=== PATIENT | female | born 1995 | race Hispanic/Latino ===

== ENCOUNTER 2019-05-31 00:14 | Emergency (ER) | payer OTHER, SELFPAY ==
--- OUTSIDE RECORDS SUMMARY | 2019-05-31 00:17 | XMS REPORT ---
:1995 [facility] Address [address] [place] [address] Dr. Iniguez [address] [place] [id number] Care Team Providers Name Role Phone Unavailable Unavailable Unavailable Problems This patient has no known problems. Allergies, Adverse Reactions, Alerts This patient has no known allergies or adverse reactions. Medications This patient has no known medications.
[2019-05-31 01:05] LABS: Absolute Lymphocytes (CBC) 1.5 K/uL (0.7-4.9); Basophils % 0.3 % (0-1.3); Hematocrit 38.8 % (36.0-45.0); Lymphocytes % 10.2 % (15.3-44.8); MPV 7.6 fL (7.6-11.3)
[2019-05-31] MEDS ORDERED: MORPHINE 4 MG/ML SYR ONE (01:06)
[2019-05-31] MEDS ORDERED: ONDANSETRON 4 MG/2 ML VIAL ONE (01:06)
[2019-05-31 01:37] LABS: Urine Blood 2+ (NEG); Urine Glucose NEGATIVE (NEG); Urine Protein 1+ (NEG); Urine Specific Gravity >1.030 (1.005-1.030); Urine pH 5.5 (5.0-7.0)
[2019-05-31 01:38] LABS: ALT/SGPT 14 U/L (12-78); AST/SGOT 12 U/L (15-37); Albumin 3.8 g/dL (3.4-5.0); Alkaline Phosphatase 98 U/L (45-117); BUN Blood Urea Nitrogen 12 mg/dL (7-18); Bicarbonate 25 mmol/L (21-32); Bilirubin Direct 0.1 mg/dL (0-0.2); Bilirubin Total 0.4 mg/dL (0.2-1.0); Glucose Level 100 mg/dL (74-106); Lipase 144 U/L (73-393); Potassium 3.6 mmol/L (3.5-5.1); Protein, Total 7.8 g/dL (6.4-8.2); Sodium Level 139 mmol/L (136-145)
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
[2019-05-31 03:30] VITALS: BP 125/70; TEMP 97.5; O2SAT 99
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
== END 2019-05-31 03:16 | disposition home or self-care (01) ==
LOC: ER 00:14
DX: S30.1XXA Contusion of abdominal wall, initial encounter (principal); V89.2XXA Person injured in unspecified motor-vehicle accident, traffic, initial encounter
CPT/HCPCS: 85025; 80048; 36415; 81025; 80076; 81003; 83690; 74177; 96375; 96374; 99284; Q9967; J2405

== ENCOUNTER 2021-11-16 10:56 | Observation (INO) | payer BC, OTHER, SELFPAY ==
--- OUTSIDE RECORDS SUMMARY | 2021-11-16 10:59 | XMS REPORT | Continuity of Care Document ---
:[address] [facility] t Address [address] [place] [address] Dr. [address] [place] [address] Care Team Providers Name Role Phone Radiology Attending Clinician Unavailable RADIOLOGY Attending Clinician Unavailable Kalin Galvez Attending Clinician KALIN MAHONEY Attending Clinician Unavailable Doctor Unassigned, [place] Attending Clinician Unavailable Payers Payer Name Policy Type Policy Number Effective Date Expiration Date [facility] [id number] 2017 2020 CHOICE MEDICAID 00:00:00 00:00:00 Problems Condition Condition Condition Status Onset Resolution Last Treating Co mments Source Name Details Category Date Date Treatment Clinician Date Obesity Obesity Disease Active Univers (BMI (BMI 7-31 ity of 30-39.9) 30-39.9) 00:00: [address] Normal Normal Disease Active Univers labor labor 7-30 ity of 00:00: [address] Branch History of History of Disease Active U ning depression depression 5-30 it y of 00:00: [place] [facility] Branch History of History of Disease Active U nivers anxiety anxiety 5-30 ity of 00:00: [address] Branch Round Round Disease Active Univers ligament ligament 5-30 ity of pain pain 00:00: [address] Branch High-risk High-risk Disease Active Uni vers 5-30 ity of in third in third 00:00: [place] trimester trimester 00 [facility] Branch Allergies, Adverse Reactions, Alerts Allergy Allergy Status Severity Reaction(s) Onset Inactive Treating Comm ents Source Name Type Date Date Clinician Clindamy Propensi Active Swelling Univ ers alo-Angelo ty to 7-10 ity of oyl adverse 00:00: [place] Peroxide reaction 00 Medica l s Branch CLINDAMY DRUG Active Swelling 2013-0 Univer s ALO-ANGELO 7-10 ity of OYL 00:00: [place] PEROXIDE 00 Medical Branch Social History Social Habit Start Date Stop Date Quantity Comments Source Exposure to Not sure [facility] SARS-CoV-2 [place] [facility] (event) Branch Tobacco use and 2017-11-25 2017-11-25 Never used Universit y of exposure 00:00:00 00:00:00 [facility] Branch Alcohol intake 2017-11-25 2017-11-25 Current University 00:00:00 00:00:00 non-drinker of [facility] alcohol Branch (finding) Sex [birth year] Universit y of 00:00:00 00:00:[address] [facility] Smoking Status Start Date Stop Date Source Never smoker [facility] Medical Branch Medications Ordered Filled Start Stop Current Ordering Indication Dosage Frequency Signature Comments Components Source Medication Medication Date Date Medication? Clinician (SIG) Name Name cholecalcif Yes 1000U Take 1,000 Univers rohith, 9-10 Units by ity of vitamin D3, 20:27: mouth [place] (VITAMIN 11 daily. Medical D3) 1,000 Branch unit tablet cholecalcif 0 Yes 1000U Take 1,000 Univers rohith, 9-10 Units by ity of vitamin D3, 20:27: mouth [place] (VITAMIN 11 daily. Medical D3) 1,000 Branch unit tablet cholecalcif 0 Yes 1000U Take 1,000 Univers rohith, 9-10 Units by ity of vitamin D3, 20:27: mouth [place] (VITAMIN 11 daily. Medical D3) 1,000 Branch unit tablet cholecalcif 0 Yes 1000U Take 1,000 Univers rohith, 9-10 Units by ity of vitamin D3, 20:27: mouth [place] (VITAMIN 11 daily. Medical D3) 1,000 Branch unit tablet cholecalcif 2017-0 Yes 1000U Take 1,000 Univers rohith, 9-10 Units by ity of vitamin D3, 20:27: mouth [place] (VITAMIN 11 daily. Medical D3) 1,000 Branch unit tablet CALCIUM Yes Take by Univers CARBONATE 8-02 mouth. ity of (TUMS 500 18:08: [place] ORAL) 15 Medical Branch CALCIUM Yes Take by Univers CARBONATE 8-02 mouth. ity of (TUMS 500 18:08: [place] ORAL) 15 Medical Branch CALCIUM Yes Take by Univers CARBONATE 8-02 mouth. ity of (TUMS 500 18:08: [place] ORAL) 15 Medical Branch CALCIUM Yes Take by Univers CARBONATE 8-02 mouth. ity of (TUMS 500 18:08: [place] ORAL) 15 Medical Branch CALCIUM Yes Take by Univers CARBONATE 8-02 mouth. ity of (TUMS 500 18:08: [place] ORAL) 15 Medical Branch Yes 1{tbl} Take 1 Unive rs vitamin 8-02 tablet by ity of w/FA tablet 00:00: mouth [place] 00 daily. Medical Branch ferrous Yes 325mg Take 1 Univers sulfate 325 8-02 tablet by ity of mg (65 mg 00:00: mouth [place] iron) 00 daily. Medical tablet Branch Yes 1{tbl} Take 1 Unive rs vitamin 8-02 tablet by ity of w/FA tablet 00:00: mouth [place] 00 daily. Medical Branch ferrous Yes 325mg Take 1 Univers sulfate 325 8-02 tablet by ity of mg (65 mg 00:00: mouth [place] iron) 00 daily. Medical tablet Branch Yes 1{tbl} Take 1 Unive rs vitamin 8-02 tablet by ity of w/FA tablet 00:00: mouth [place] 00 daily. Medical Branch ferrous Yes 325mg Take 1 Univers sulfate 325 8-02 tablet by ity of mg (65 mg 00:00: mouth [place] iron) 00 daily. Medical tablet Branch Yes 1{tbl} Take 1 Unive rs vitamin 8-02 tablet by ity of w/FA tablet 00:00: mouth [place] 00 daily. Medical Branch ferrous Yes 325mg Take 1 Univers sulfate 325 8-02 tablet by ity of mg (65 mg 00:00: mouth [place] iron) 00 daily. Medical tablet Branch Yes 1{tbl} Take 1 Unive rs vitamin 8-02 tablet by ity of w/FA tablet 00:00: mouth [place] 00 daily. Medical Branch ferrous Yes 325mg Take 1 Univers sulfate 325 8-02 tablet by ity of mg (65 mg 00:00: mouth [place] iron) 00 daily. Medical tablet Branch Adapalene Yes Apply to Univ ers (DIFFERIN) 7-10 affected ity o f 0.3 % Gel 00:00: area(s) [place] 00 every Medical evening. Branch Adapalene Yes Apply to [facility] ers (DIFFERIN) 7-10 affected ity o f 0.3 % Gel 00:00: area(s) [place] 00 every Medical evening. Branch Adapalene 2012- Yes Apply to [facility] ers (DIFFERIN) 7-10 affected ity o f 0.3 % Gel 00:00: area(s) [place] 00 every Medical evening. Branch Adapalene 2012- Yes Apply to [facility] ers (DIFFERIN) 7-10 affected ity o f 0.3 % Gel 00:00: area(s) [place] 00 every Medical evening. Branch Adapalene Yes Apply to [facility] ers (DIFFERIN) 7-10 affected ity o f 0.3 % Gel 00:00: area(s) [place] 00 every Medical evening. Branch Immunizations Ordered Filled Immunization Date Status Comments [facility] e Immunization Name Name [facility] 2017-08-14 Completed [facility] 00:00:00 [place] [facility] 2017-08-14 Completed [facility] 00:00:00 [place] [facility] 2017-08-14 Completed [facility] 00:00:00 [place] [facility] 2017-08-14 Completed [facility] 00:00:00 [place] [facility] 2017-08-14 Completed [facility] 00:00:[address] [facility] Procedures Procedure Date / Time Performing Clinician Source Performed XR RIBS 3 VW RIGHT 2020-08-05 17:40:58 Sharona Kang [facility] US ABDOMEN LIMITED 2020-07-26 22:22:14 Kalin Mahoney [facility] CONSENT/REFUSAL FOR 2020-07-26 22:02:21 [facility] ASSIGNMENT OF BENEFITS 2020-07-26 22:02:09 Doctor Unassigned, No [facility] US PELVIS COMPLETE WITH 2020-03-31 21:57:34 Requisition, Paper U [facility] TRANSVAGINAL [facility] ASSIGNMENT OF BENEFITS 2020-03-31 20:53:38 Doctor Unassigned, No [facility] Encounters Start End Encounter Admission Attending Care Care Encounter Source Date/Time Date/Time Type Type Clinicians Facility Department ID 2020-08-05 2020-08-05 [facility] Radiology RUST [id number] Univers 12:27:03 23:59:00 Encounter [place] [id number] ity of [place] [id number] [place] [id number] [facility] 807 Branch 2020-08-05 2020-08-05 Outpatient R RADIOLOGY [facility] [id number] Univers 12:30:00 12:30:[id number] [facility] 2020-08-05 2020-08-05 Outpatient R RADIOLOGY [facility] [id number] Univers 00:00:00 00:00:[address] [facility] 2020-07-26 2020-07-26 [facility] [id number] Univers 17:00:00 23:59:00 Encounter Kalin L Ean [id number] ity of [place] [id number] [facility] [id number] [facility] 806 [place] 2020-07-26 2020-07-26 [facility] [id number] Univers 17:00:00 17:00:[id number] [facility] 2020-07-26 2020-07-26 [facility] [id number] Univers 00:00:00 00:00:[address] [facility] 2020-07-26 2020-07-26 Orders Doctor LEESA [id number] Univers 00:00:00 00:00:00 Only Unassigned, MITCH [id number] ity of [place] [facility] [id number] [place] [id number] [facility] 009 Branch 2020-03-31 2020-03-31 [facility] Radiology RUST [id number] Univers 14:55:24 23:59:00 Encounter Dub[place] [id number] ity of [place] [id number] [facility] [id number] [facility] 806 Branch 2020-03-31 2020-03-31 Outpatient R RADIOLOGY [facility] [id number] Univers 15:30:00 15:30:[id number] [facility] 2020-03-31 2020-03-31 Outpatient R RADIOLOGY [facility] [id number] Univers 00:00:00 00:00:[address] [facility] 2020-03-31 2020-03-31 Orders Doctor LEESA [id number] Univers 00:00:00 00:00:00 Only Unassigned, MITCH [id number] ity of [place] [facility] [id number] [facility] [id number] [facility] 009 Branch Results Test Description Test Time Test Comments Results Result [facility] e Comments XR RIBS 3 VW 2020-07-17 No rib fracture, Unive rsity of RIGHT 1 rib lesion, or [facility] 19:43:02 pleural effusion Branch evident. RL: [id number] Patient name: KINSEY CHOWDARYMarques: 1995 25 years EXAMINATION: XR RIBS 3 VW RIGHT Ordering Physician: SHARONA KANG CLINICAL HISTORY:Pleuritic chest pain COMPARISON:None TECHNIQUE:Single frontal view the chest and multiple views of the left ribsperformed. FINDINGS:No discrete rib fracture. No rib lesions identified. No effusion orpneumothorax. No definite spine fracture. No pulmonary infiltrates. Heartsize is normal without edema. Normal aortic contours. [facility], Radiant Results Inft User - 08/05/2020 2:44 PM CDTPatient name: KINSEY JEFFERSON: 1995 25 years EXAMINATION: XR RIBS 3 VW RIGHTOrdering Physician: SHARONA KANG CLINICAL HISTORY:Pleuritic chest pain COMPARISON:NoneTECHN IQUE:Single frontal view the chest and multiple views of the left ribsperformed.FINDIN GS:No discrete rib fracture. No rib lesions identified. No effusion orpneumothorax. No definite spine fracture. No pulmonary infiltrates. Heartsize is normal without edema. Normal aortic contours.IMPRESSIONN o rib fracture, rib lesion, or pleural effusion evident.RL: 1105 ABDOMEN 2020-07-16 Impression: ? There Unive rsity of LIMITED 1 is no evidence of a [place] [facility] 23:08:30 focal subcutaneous Branch mass or cyst in the softtissues of the abdominal wall and the right upper quadrant. If there ispersistent clinical concern, an abdomen and pelvis CT with contrast isrecommended. RL: [id number] Clinical indication: Mass felt in the subcutaneous tissues in the rightupper quadrant. Ordering Physician: KALIN MAHONEY Exam: Limited abdominal ultrasound. Technique: ?Realtime transabdominal ultrasonographic images were obtained. There are no prior ultrasounds for comparison. ?All diagnostic images arestored in PACS for future documentation. Findings: ? There is no evidence of a focal subcutaneous mass or cyst in the softtissues of the abdominal wall and the right upper quadrant. If there ispersistent clinical concern, an abdomen and pelvis CT with contrast isrecommended. [facility], Radiant Results Inft User - 07/26/2020 6:09 PM CDTClinical indication: Mass felt in the subcutaneous tissues in the rightupper quadrant.Ordering Physician: KALIN MAHONEYExam: Limited abdominal ultrasound.Technique : Realtime transabdominal ultrasonographic images were obtained. There are no prior ultrasounds for comparison. All diagnostic images arestored in PACS for future documentation.Findin gs: There is no evidence of a focal subcutaneous mass or cyst in the softtissues of the abdominal wall and the right upper quadrant. If there ispersistent clinical concern, an abdomen and pelvis CT with contrast isrecommended.IMPRES SIONImpression: There is no evidence of a focal subcutaneous mass or cyst in the softtissues of the abdominal wall and the right upper quadrant. If there ispersistent clinical concern, an abdomen and pelvis CT with contrast isrecommended.RL: 4507 PELVIS 2020-03-18 HISTORY: PCOS [facility] WITH 4 syndrome. TECHNIQUE: T ex Medical TRANSVAGINAL 22:01:30 Both transabdominal [facility] and transvaginal pelvic ultrasound studieswere completed by the technologist. FINDINGS: Uterus is slightly enlarged, lying and retroflexed position inthe pelvis, measures approximately 8.5 x 3.7 x 4.6 cm in size withhomogeneous echo texture of the myometrium. IUD appears to be in goodposition within the uterus. Endometrial echo complex is 8.1 mm. No freefluid in the cul-de-sac. Right ovary is 2.6 x 2.3 x 2.0 cm (6.25 ml) and left ovary is 3.0 x 2.5 x1.6 cm (6.34 ml). 3 to 5 mm size follicles are seen in both ovaries,approximatel y 10 in the left ovary and 4-5 in the right ovary. CONCLUSIONS: 1. Bulky uterus without any focal myometrial lesions.2. IUD in good position in the uterus.3. Small follicles in both ovaries. Sonographic findings are not typicalfor PCOS. [facility], Radiant Results Inft User - 03/31/2020 4:02 PM CSTHISTORY: PCOS syndrome.TECHNIQUE: Both transabdominal and transvaginal pelvic ultrasound studieswere completed by the technologist.FINDING S: Uterus is slightly enlarged, lying and retroflexed position inthe pelvis, measures approximately 8.5 x 3.7 x 4.6 cm in size withhomogeneous echo texture of the myometrium. IUD appears to be in goodposition within the uterus. Endometrial echo complex is 8.1 mm. No freefluid in the cul-de-sac. Right ovary is 2.6 x 2.3 x 2.0 cm (6.25 ml) and left ovary is 3.0 x 2.5 x1.6 cm (6.34 ml). 3 to 5 mm size follicles are seen in both ovaries,approximatel y 10 in the left ovary and 4-5 in the right ovary.CONCLUSIONS: 1. Bulky uterus without any focal myometrial lesions.2. IUD in good position in the uterus.3. Small follicles in both ovaries. Sonographic findings are not typicalfor PCOS.
[2021-11-16] MEDS ORDERED: Ringers Lactate 1,000 ML IV ONE (11:21)
[2021-11-16 11:30] LABS: Absolute Lymphocytes (CBC) 1.8 K/uL (0.7-4.9); Hematocrit 38.2 % (36.0-45.0); Lymphocytes % 22.9 % (15.3-44.8); MCV 82.9 fL (80-100); MPV 7.1 fL (7.6-11.3); RBC Red Blood Cell Count 4.61 M/uL (3.86-4.86)
[2021-11-16 11:51] LABS: ALT/SGPT 18 U/L (12-78); AST/SGOT 12 U/L (15-37); Alkaline Phosphatase 90 U/L (45-117); BUN Blood Urea Nitrogen 13 mg/dL (7-18); Bicarbonate 28 mmol/L (21-32); Bilirubin Direct 0.1 mg/dL (0-0.2); Bilirubin Total 0.5 mg/dL (0.2-1.0); Glomerular Filtration Rate 93 ml/min (=/>90); Glucose Level 93 mg/dL (74-106); Magnesium 2.2 mg/dL (1.8-2.4); NT PRO-BNP 6 pg/mL (<125); Potassium 3.5 mmol/L (3.5-5.1); Sodium Level 138 mmol/L (136-145)
[2021-11-16 11:55] LABS: Urine Blood 1+ (Negative); Urine Glucose Negative (Negative); Urine Protein Negative (Negative); Urine Specific Gravity >=1.030 (1.005-1.030)
[2021-11-16 12:00] LABS: Troponin High Sensitivity < 3.0 pg/mL (<58.9)
--- NOTE | 2021-11-16 12:12 | RAD REPORT ---
EXAM DESCRIPTION: CT - CTHCSPWOC - 11/16/2021 12:03 pm CLINICAL HISTORY: syncope, head injury COMPARISON: No comparisons TECHNIQUE: Axial 5 mm thick images of the head were obtained. Axial 2 mm thick images of the cervic al spine were obtained with sagittal and coronal reconstruction images generated and reviewed. All CT scans are performed using dose optimization technique as appropriate and may include automated exposure control or mA/KV adjustment according to patient size. FINDINGS: No intracranial hemorrhage, mass, edema or acute intracranial finding. No suspicion for ac [place] infarction. No extra-axial fluid collections. Mastoid air cells and paranasal sinuses are clear. No globe or orbit abnormality seen. Cervical body height and alignment are normal. No disk space narrowing. No fracture or acute bony abn ormality. Central canal detail is inherently limited. No paraspinal mass or hematoma. IMPRESSION: Negative CT head examination for acute or significant finding. Negative CT cervical spine examination for acute or significant finding.
[2021-11-16 12:29] LABS: Protime INR 0.98
--- NOTE | 2021-11-16 12:36 | RAD REPORT ---
EXAM DESCRIPTION: RAD - Chest Single View - 11/16/2021 12:30 pm CLINICAL HISTORY: syncope Chest pain. COMPARISON: ABDOMEN 1 VIEW KUB dated 01/06/2013; CHEST PA AND LAT 2 VIEW dated 06/27/2012 FINDINGS: Portable technique limits examination quality. The lungs are grossly clear. The heart is normal in size. No displaced fractures. IMPRESSION: No acute intrathoracic process suspected.
--- NOTE | 2021-11-16 16:37 | ER ---
Nurse's Notes [facility] Name: Luisa Helm Age: 26 yrs Sex: Female : 1995 Arrival Date: 11/16/2021 Time: 10:56 Bed 4 Private MD: Amy Pond Diagnosis: Syncope;Palpitations Presentation: 11/16 11:07 Chief complaint: Patient states: Passed out while assisting in a procedure at work just ss prior to arrival. Pt reports that this occurred once before 2 weeks ago. Coronavirus screen: Client denies travel out of the [place] in the last 14 days. Ebola Screen: Patient denies exposure to infectious person. Patient denies travel to an Ebola-affected area in the 21 days before illness onset. Initial Sepsis Screen: Does the patient meet any 2 criteria? No. Patient's initial sepsis screen is negative. Does the patient have a suspected source of infection? No. Patient's initial sepsis screen is negative. Risk Assessment: Do you want to hurt yourself or someone else? Patient reports no desire to harm self or others. Onset of symptoms was November 16, 2021. 11:07 Method Of Arrival: Ambulatory ss 11:07 Acuity: LOPEZ 3 ss Historical: - Allergies: 11:13 BENZOYL PEROXIDE; ss - Home Meds: 11:13 None [Active]; ss - PMHx: 11:13 None; ss - PSHx: 11:13 section; Breast Reduction; ss - Immunization history:: Client reports receiving the 2nd dose of the Covid vaccine. - Social history:: Smoking status: Patient denies any tobacco usage or history of. Screenin:15 Abuse screen: Denies threats or abuse. Nutritional screening: No deficits noted. vg1 Tuberculosis screening: No symptoms or risk factors identified. Fall Risk No fall in past 12 months (0 pts). No secondary diagnosis (0 pts). IV access (20 points). Ambulatory Aid- None/Bed Rest/Nurse Assist (0 pts). Gait- Normal/Bed Rest/Wheelchair (0 pts) Mental Status- Oriented to own ability (0 pts). Total Navarro Fall Scale indicates No Risk (0-24 pts). Assessment: 11:15 General: Appears in no apparent distress. uncomfortable, Behavior is calm, cooperative. vg1 Pain: Denies pain. Neuro: Level of Consciousness is awake, alert, obeys commands, Oriented to person, place, time, situation, Reports dizziness. Cardiovascular: Patient's skin is warm and dry. Respiratory: Airway is patent Respiratory effort is even, unlabored. GI: Abdomen is flat, non-distended, Patient currently denies nausea, vomiting. : No signs and/or symptoms were reported regarding the genitourinary system. EENT: No signs and/or symptoms were reported regarding the EENT system. Derm: Skin is pink, warm \T\ dry. Musculoskeletal: Circulation, motion, and sensation intact. 12:30 Reassessment: Patient appears in no apparent distress at this time. Patient and/or vg1 family updated on plan of care and expected duration. Pain level reassessed. Patient is alert, oriented x 3, equal unlabored respirations, skin warm/dry/pink. Patient denies pain at this time. Patient states feeling better. 14:10 Reassessment: Patient appears in no apparent distress at this time. No changes from vg1 previously documented assessment. Patient and/or family updated on plan of care and expected duration. Pain level reassessed. Patient is alert, oriented x 3, equal unlabored respirations, skin warm/dry/pink. 15:15 Reassessment: Patient appears in no apparent distress at this time. No changes from vg1 previously documented assessment. Patient and/or family updated on plan of care and expected duration. Pain level reassessed. Patient is alert, oriented x 3, equal unlabored respirations, skin warm/dry/pink. 16:00 Reassessment: Patient appears in no apparent distress at this time. No changes from tp1 previously documented assessment. Patient is alert, oriented x 3, equal unlabored respirations, skin warm/dry/pink. 17:09 Reassessment: Patient appears in no apparent distress at this time. No changes from tp1 previously documented assessment. Patient and/or family updated on plan of care and expected duration. Pain level reassessed. Patient is alert, oriented x 3, equal unlabored respirations, skin warm/dry/pink. 19:50 Reassessment: Patient appears in no apparent distress at this time. Patient and/or jb4 family updated on plan of care and expected duration. Pain level reassessed. Patient is alert, oriented x 3, equal unlabored respirations, skin warm/dry/pink. 20:27 Reassessment: Patient appears in no apparent distress at this time. Patient and/or jb4 family updated on plan of care and expected duration. Pain level reassessed. Patient is alert, oriented x 3, equal unlabored respirations, skin warm/dry/pink. 21:00 Reassessment: Patient appears in no apparent distress at this time. Patient and/or jb4 family updated on plan of care and expected duration. Pain level reassessed. Patient is alert, oriented x 3, equal unlabored respirations, skin warm/dry/pink. Vital Signs: 11:07 BP 115 / 76; Pulse 89; Resp 16; Temp 98.4(O); Pulse Ox 100% on R/A; Weight 66.68 kg; ss Height 5 ft. 0 in. (152.40 cm); Pain 0/10; 12:30 BP 109 / 73; Pulse 78; Resp 14; Pulse Ox 100% on R/A; vg1 13:00 BP 119 / 72; Pulse 80; Resp 16; Pulse Ox 100% on R/A; vg1 14:00 BP 117 / 77; Pulse 92; Resp 17; Pulse Ox 100% ; vg1 16:04 BP 116 / 82; Pulse 85; Resp 20; Pulse Ox 100% on R/A; em6 17:50 BP 117 / 74; Pulse 92; Resp 15; Pulse Ox 98% on R/A; tp1 19:30 BP 108 / 69; Pulse 90; Resp 16; Pulse Ox 100% on R/A; jb4 20:27 BP 115 / 88; Pulse 88; Resp 17; Temp 98.8(TE); Pulse Ox 100% on R/A; jb4 11:07 Body Mass Index 28.71 (66.68 kg, 152.40 cm) ED Course: 10:56 Patient arrived in ED. mr 10:57 Amy Pond is Private Physician. mr 10:58 [facility] Wall [facility]. jmm 10:58 Fabián Blandon DO is Attending Physician. jmm 11:11 Emily Caicedo, RN is Primary Nurse. vg1 11:13 Triage completed. ss 11:13 Arm band placed on right wrist. ss 11:15 Patient has correct armband on for positive identification. Placed in gown. Bed in low vg1 position. Call light in reach. Side rails up X2. Client placed on continuous cardiac and pulse oximetry monitoring. NIBP monitoring applied. 11:15 Inserted saline lock: 20 gauge in left antecubital area, using aseptic technique. Blood jd3 collected. 12:04 CT Head C Spine In Process Unspecified. EDMS 12:32 XRAY Chest (1 view) In Process Unspecified. EDMS 15:40 Repeat lab(s) drawn. by me. vg1 16:18 SARS RAPID Sent. vg1 16:36 Parish Carbone MD is Hospitalizing Provider. [facility] 18:14 Inserted saline lock: 20 gauge in left forearm, using aseptic technique. jd3 21:00 No provider procedures requiring assistance completed. Patient admitted, IV remains in jb4 place. Administered Medications: 11:18 Drug: Lactated Ringers Solution 1000 ml Route: IV; Rate: 1000 bolus; Site: left vg1 antecubital; Medication: 11:15 VIS not applicable for this client. vg1 Outcome: 16:36 Decision to Hospitalize by Provider. [facility] 21:00 Admitted to Med/surg accompanied by [facility], via wheelchair, room 205, with chart, Report jb4 called to JUSTIN Santos 21:00 Condition: stable 21:00 Discharge instructions given to patient, Instructed on the need for admit, Demonstrated understanding of instructions. 21:13 Patient left the ED. jb4 Signatures: Dispatcher [employer] EDND Donnie Wall PA PA erin NapoleonTerri mr VazquezJeri, RN Nima Mota RN JUSTIN jb4 Julio Gayle RN RN Emily Rodrigez RN RN vg1 Toyin Paez, JUSTIN RN tp1 Asia Rojas, JUSTIN RN em6
--- NOTE | 2021-11-16 16:37 | EDPHYS ---
Physician Documentation [facility] Name: Luisa Helm Age: 26 yrs Sex: Female : 1995 Arrival Date: 11/16/2021 Time: 10:56 Bed 4 Private MD: Amy Pond ED Physician Fabián Blandon HPI: 11/16 11:06 This 26 yrs old Female presents to ER via Ambulatory with complaints of Passed jmm Out Prior To Arrival. 11:06 The patient has experienced syncope. Onset: The symptoms/episode began/occurred jmm acutely, just prior to arrival. Duration: This was a single episode. Associated injury: The patient did not suffer any apparent associated injury. 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 Patient states developing palpitations prior to episode. Patient had a similar episode 2 weeks prior. . Historical: - Allergies: 11:13 BENZOYL PEROXIDE; ss - Home Meds: 11:13 None [Active]; ss - PMHx: 11:13 None; ss - PSHx: 11:13 section; Breast Reduction; ss - Immunization history:: Client reports receiving the 2nd dose of the Covid vaccine. - Social history:: Smoking status: Patient denies any tobacco usage or history of. ROS: 11:06 Constitutional: Negative for fever, chills, and weight loss, Respiratory: Negative for jmm shortness of breath, cough, wheezing, and pleuritic chest pain. 11:06 Cardiovascular: Positive for palpitations. 11:06 All other systems are negative. Exam: 11:06 Constitutional: This is a well developed, well nourished patient who is awake, alert, jmm and in no acute distress. Head/Face: atraumatic. Eyes: EOMI, no conjunctival erythema appreciated ENT: Moist Mucus Membranes Neck: Trachea midline, Supple Chest/axilla: Normal chest wall appearance and motion. Cardiovascular: Regular rate and rhythm. No edema appreciated Respiratory: Normal respirations, no respiratory distress appreciated Abdomen/GI: Non distended Back: Normal ROM Skin: General appearance color normal MS/ Extremity: Moves all extremities, no obvious deformities appreciated, no edema noted to the lower extremities Neuro: Awake and alert Psych: Behavior is normal, Mood is normal, Patient is cooperative and pleasant Vital Signs: 11:07 BP 115 / 76; Pulse 89; Resp 16; Temp 98.4(O); Pulse Ox 100% on R/A; Weight 66.68 kg; ss Height 5 ft. 0 in. (152.40 cm); Pain 0/10; 12:30 BP 109 / 73; Pulse 78; Resp 14; Pulse Ox 100% on R/A; vg1 13:00 BP 119 / 72; Pulse 80; Resp 16; Pulse Ox 100% on R/A; vg1 14:00 BP 117 / 77; Pulse 92; Resp 17; Pulse Ox 100% ; vg1 16:04 BP 116 / 82; Pulse 85; Resp 20; Pulse Ox 100% on R/A; em6 17:50 BP 117 / 74; Pulse 92; Resp 15; Pulse Ox 98% on R/A; tp1 19:30 BP 108 / 69; Pulse 90; Resp 16; Pulse Ox 100% on R/A; jb4 20:27 BP 115 / 88; Pulse 88; Resp 17; Temp 98.8(TE); Pulse Ox 100% on R/A; jb4 11:07 Body Mass Index 28.71 (66.68 kg, 152.40 cm) ss MDM: 11:[address] [facility] 16:04 Data reviewed: vital signs, nurses notes. Counseling: I had a detailed discussion with [facility] the patient and/or guardian regarding: the historical points, exam findings, and any diagnostic results supporting the discharge/admit diagnosis, lab results, radiology results, the need for further work-up and treatment in the hospital. 16:32 ED course: Dr. Bach evaluated the patient and requested observation. I discussed the [facility] patient with Dr. Carbone whom accepted the patient to his service. . 11/16 11:07 Order name: Basic Metabolic Panel; Complete Time: 12:02 [facility] 11/16 11:07 Order name: CBC with Diff; Complete Time: 11:35 [facility] 11/16 11:07 Order name: D-Dimer; Complete Time: 12:32 [facility] 11/16 11:07 Order name: LFT's; Complete Time: 12:02 [facility] 11/16 11:07 Order name: Magnesium; Complete Time: 12:02 [facility] 11/16 11:07 Order name: NT PRO-BNP; Complete Time: 12:02 [facility] 11/16 11:07 Order name: PT-INR; Complete Time: 12:32 [facility] 11/16 11:07 Order name: Troponin HS; Complete Time: 12:02 [facility] 11/16 11:55 Order name: Urine Dipstick-Ancillary; Complete Time: 12:02 [facility] 11/16 15:35 Order name: Troponin High Sensitivity; Complete Time: 16:24 [facility] 11/16 16:05 Order name: SARS RAPID; Complete Time: 16:55 [facility] 11/16 16:37 Order name: TSH; Complete Time: 17:48 [facility] 11/16 16:45 Order name: Basic Metabolic Panel [facility] 11/16 11:07 Order name: XRAY Chest (1 view); Complete Time: 12:47 [facility] 11/16 11:07 Order name: EKG; Complete Time: 11:07 [facility] 11/16 11:07 Order name: Cardiac monitoring; Complete Time: 11:07 [facility] 11/16 11:07 Order name: EKG - Nurse/Tech; Complete Time: 11:29 [facility] 11/16 11:07 Order name: IV Saline Lock; Complete Time: 11:19 [facility] 11/16 11:07 Order name: Labs collected and sent; Complete Time: 11:19 [facility] 11/16 11:31 Order name: CT Head C Spine; Complete Time: 12:12 [facility] 11/16 16:45 Order name: Regular EDKY 11/16 16:45 Order name: EKG Electrocardiogram EDKY 11/16 16:45 Order name: EKG Electrocardiogram EDKY 11/16 16:45 Order name: EKG Electrocardiogram EDMS 11/16 16:45 Order name: EKG Electrocardiogram EDMS 11/16 16:45 Order name: Basic Metabolic Panel [facility] 11/16 16:45 Order name: CBC with Automated Diff EDMS 11/16 16:45 Order name: CBC with Automated Diff EDMS 11/16 11:07 Order name: O2 Per Protocol; Complete Time: 11:07 [facility] 11/16 11:07 Order name: O2 Sat Monitoring; Complete Time: 11:07 [facility] 11/16 11:07 Order name: Urine Dipstick-Ancillary (obtain specimen); Complete Time: 12:07 [facility] 11/16 11:07 Order name: Urine Test (obtain specimen); Complete Time: 12:07 jmm Administered Medications: 11:18 Drug: Lactated Ringers Solution 1000 ml Route: IV; Rate: 1000 bolus; Site: left vg1 antecubital; Disposition: 13:37 Co-signature as Attending Physician, Fabián Blandon DO PA/[employer]'s history reviewed, patient ms3 interviewed, and examined. HPI: 26-year-old female presents from upstairs operating room for syncopal episode while assisting in surgery. Patient states she felt her heart racing and then became lightheaded and passed out. Patient states this is the second time that this is occurred. My personal exam of patient reveals: Patient is alert and oriented x4, no apparent distress, nontoxic. Heart rate and rhythm are regular without murmurs rubs or gallops. Lungs clear to auscultation bilaterally. Abdomen nontender to palpation. Skin is without rashes or diaphoresis. I agree with assessment and care plan and confirm the diagnosis (es) above. 19:56 PA/[employer]'s history reviewed, patient interviewed, and examined. I agree with assessment ms3 and care plan and confirm the diagnosis (es) above. Disposition Summary: 11/16/21 16:36 Hospitalization Ordered Hospitalization Status: Observation [facility] Provider: Parish Carbone Location: Telemetry/MedSurg (observation) jmm Condition: Stable jmm Problem: new jmm Symptoms: are unchanged jmm Bed/Room Type: Standard [facility] Room Assignment: 205(11/16/21 20:15) cg Diagnosis - Syncope jmm - Palpitations jmm Forms: - Medication Reconciliation Form jmm - SBAR form jmm Signatures: Dispatcher [employer] EDDonnie Royal PA PA jmm Smirch, Shelby, RN RN ss Garcia, Cindy, RN RN cg Garcia, Victoria, RN RN vg1 Fabián Blandon DO DO ms3 Corrections: (The following items were deleted from the chart) 20:15 16:36 jmm cg
[2021-11-16 16:39] LABS: SARS-CoV-2 Antigen Rapid Res Negative (Negative)
[2021-11-16] MEDS ORDERED: ACETAMINOPHEN 500 MG TAB PO PRN (16:40)
[2021-11-16] MEDS ORDERED: ONDANSETRON 4 MG/2 ML VIAL IV PRN (16:40)
--- NOTE | 2021-11-16 18:12 | P.HP ---
Certification for Inpatient Patient admitted to: Observation With expected LOS: <2 Midnights Patient will require the following post-hospital care: None Practitioner: I am a practitioner with admitting privileges, knowledge of patient current condition, hospital course, and medical plan of care. 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 She is currently sitting in the ER with no complaints. She does have some dizzziness when she stands. That is a chronic problem she has been having for the last few months. She had a negative Head Ct. No history of seizues. Allergies No Known Allergies Allergy (Verified 06/29/12 10:19) Review of Systems 10-point ROS is otherwise unremarkable Cardiovascular: Light Headedness Physical Examination - Physical Exam General: Alert, In no apparent distress HEENT: Atraumatic, PERRLA, Mucous membr. moist/pink, EOMI, Sclerae nonicteric Neck: Supple, 2+ carotid pulse no bruit, No LAD, Without JVD or thyroid abnormality Respiratory: Clear to auscultation bilaterally, Normal air movement Cardiovascular: Regular rate/rhythm, Normal S1 S2 Gastrointestinal: Normal bowel sounds, No tenderness Musculoskeletal: No tenderness Integumentary: No rashes Neurological: Normal gait, Normal speech, Normal strength at 5/5 x4 extr, Normal tone, Normal affect Lymphatics: No axilla or inguinal lymphadenopathy - Studies Laboratory Data (last 24 hrs) 11/16/21 11:16: PT 10.8, INR 0.98 11/16/21 11:16: WBC 7.90, Hgb 13.3, Hct 38.2, Plt Count 389 11/16/21 11:16: Sodium 138, Potassium 3.5, BUN 13, Creatinine 0.88, Glucose 93, Magnesium 2.2, Total Bilirubin 0.5, AST 12 L, ALT 18, Alkaline Phosphatase 90 Assessment and Plan - Problems (Diagnosis) (1) Syncope and collapse Current Visit: Yes Status: Acute Plan: was seen by Dr. Bach Plan is for an echocardiogram in the morning. Will keep her on a monitor. May need an outpatient monitor as well Discharge Plan: Home Plan to discharge in: 24 Hours - Advance Directives Does patient have a Living Will: No Does patient have a Durable POA for Healthcare: No - Code Status/Comfort Care Code Status Assessed: No Code Status: Full Code Physician Review: Patient Assessed, Agree with Above Assessment and Plan Critical Care: No Time Spent Managing Pts Care (In Minutes): 35
--- NOTE | 2021-11-16 18:59 | CON ---
Date of Consultation: 11/16/2021 Reason For Consultation: Syncope. History Of Present Illness: A 26-year-old female, no medical history. 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 She has been doing this job for a long time. She apparen tly felt all the sudden heart racing to a very high level and she started getting dizzy and knew that she is going to black out and indeed she collapsed on the floor and she came through when she hit th e floor. At that time, vitals were acceptable when they were checked and the patient was sent to the ER for evaluation. Apparently, this is the second episode that happened in the same setting in the OR. The patient claimed that she has been drinking a significant amount of Red Bull which is the reece greer drink. At this point, she is asymptomatic, does not have any chest pain. No shortness of breath . No other complaints. Past Medical History: None. Medications: None. Allergies: NO KNOWN DRUG ALLERGIES. Family History: No premature coronary artery disease or cancer. Social History: She does not drink or use any drugs on a regular basis. Review of Systems: All systems reviewed and they were negative except for what mentioned HPI. Physical Examination: Vital Signs: Reviewed. Head and Neck: Pupils are equal, reactive to light. Intact eye movements. No JVD. No cervical lym phadenopathy. Neck is supple. Thyroid is not enlarged. Lungs: Clear to auscultation bilaterally. No rhonchi, wheezing, or crackles. No accessory muscle u se. Heart: Regular rate and rhythm. No extra sounds. Abdomen: Soft, nontender. Bowel sounds positive. No organomegaly. No masses or hernia. No rigidi ty or rebound. Extremities: No edema, clubbing or cyanosis. Intact pulses. Skin: No rash. Neurologic: Alert, awake, oriented x3. No acute focal deficits appreciated. Investigations: Troponins x2 are negative. Creatinine 0.88, hemoglobin 13.3. Assessment And Recommendations: 1.Syncope. She had an episode of significant palpitations prior. This could be cardiac arrhythmia. EKG without any specific abnormalities. Admit for observation and we will monitor her heart rhythm on telemetry and she had 2 cardiac enzymes that are negative, so no further troponin checks are nece ssary. Please obtain echocardiogram in the morning and further plan to follow. 2.Palpitations that led to syncope. Monitor on telemetry. Please obtain TSH as well and echocardiog robles in the morning. SR/MODL Voice ID: [id number] Report ID: [id number]
[2021-11-16] MEDS ORDERED: ACETAMINOPHEN 500 MG TAB ONE (20:40)
[2021-11-16 22:17] VITALS: BMI 4077.4
[2021-11-16 22:24] VITALS: O2SAT 100
[2021-11-17 03:46] LABS: Absolute Lymphocytes (CBC) 2.5 K/uL (0.7-4.9); Hematocrit 36.1 % (36.0-45.0); Lymphocytes % 26.2 % (15.3-44.8); MCV 82.3 fL (80-100); RBC Red Blood Cell Count 4.38 M/uL (3.86-4.86)
[2021-11-17 04:19] LABS: Potassium 3.7 mmol/L (3.5-5.1)
--- NOTE | 2021-11-17 07:21 | EKG ---
Test Date: 2021-11-16 Test Time: 11:21:54 Delinquent Account Clerk: GEORGIE MEASUREMENT RESULTS: Intervals: Rate: 77 UT: 106 QRSD: 96 QT: 368 QTc: 416 [place]: P: 69 UT: 106 QRS: 79 T: 66 INTERPRETIVE STATEMENTS: Sinus rhythm with short UT Otherwise normal ECG No previous ECG available for comparison Electronically Signed On 11-17-21 07:18:47 CDT by Joey Casanova
[2021-11-17] MEDS ORDERED: ASPIRIN EC 81 MG TAB PO SCH (09:00)
[2021-11-17 13:29] VITALS: BP 107/54; TEMP 98.1
--- NOTE | 2021-11-17 14:08 | P.DS ---
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 She is currently sitting in the ER with no complaints. She does have some dizzziness when she stands. That is a chronic problem she has been having for the last few months. She had a negative Head Ct. No history of seizues. Hospital Course: Patient was to get an echo. However was not done this morning. Would not be done till Saturday morning. Will discharge her. Have the patient follow up and do the rest of the work up as an outpatient Vital Signs/Physical Exam: Temp Pulse Resp BP Pulse Ox 98.1 F 94 H 16 107/54 L 98 11/17/21 12:00 11/17/21 12:00 11/17/21 12:00 11/17/21 12:00 11/17/21 12:00 General: Alert, In no apparent distress HEENT: Atraumatic, PERRLA, EOMI Neck: Supple, JVD not distended Respiratory: Clear to auscultation bilaterally, Normal air movement Cardiovascular: Regular rate/rhythm, Normal S1 S2 Gastrointestinal: Normal bowel sounds, No tenderness Musculoskeletal: No tenderness Integumentary: No rashes Neurological: Normal speech, Normal tone, Normal affect Lymphatics: No axilla or inguinal lymphadenopathy Laboratory Data at Discharge: WBC 9.60 K/uL (4.3-10.9) D 11/17/21 03:31 Hgb 12.6 g/dL (12.0-15.0) 11/17/21 03:31 Hct 36.1 % (36.0-45.0) 11/17/21 03:31 Plt Count 332 K/uL (152-406) 11/17/21 03:31 PT 10.8 SECONDS (9.5-12.5) 11/16/21 11:16 INR 0.98 11/16/21 11:16 Sodium 139 mmol/L (136-145) 11/17/21 03:31 Potassium 3.7 mmol/L (3.5-5.1) 11/17/21 03:31 BUN 13 mg/dL (7-18) 11/17/21 03:31 Creatinine 0.75 mg/dL (0.55-1.3) 11/17/21 03:31 Glucose 107 mg/dL (74-106) H 11/17/21 03:31 Magnesium 2.2 mg/dL (1.8-2.4) 11/16/21 11:16 Total Bilirubin 0.5 mg/dL (0.2-1.0) 11/16/21 11:16 AST 12 U/L (15-37) L 11/16/21 11:16 ALT 18 U/L (12-78) 11/16/21 11:16 Alkaline Phosphatase 90 U/L (45-117) 11/16/21 11:16 Home Medications: Lions Tim 500 mg PO DAILY 11/16/21 Diet: Regular Activity: Ad juan antonio Followup: Justo Bach MD [ACTIVE - CAN ADMIT] - 1-2 Weeks Cande Avilez FNP BC [Primary Care Provider] - 1 Week Time spent managing pt's care (in minutes): 25
--- NOTE | 2021-11-17 14:27 | ECHO ---
HEIGHT: 5 ft 0 in WEIGHT: 145 lb 0 oz DATE OF STUDY: 11/17/[address]: Parish Carbone MD 2-DIMENSIONAL: YES M.MODE: YES DOPPLER: YES COLOR FLOW: YES TDS: NO PORTABLE: YES DEFINITY: NO BUBBLE STUDY: NO DIAGNOSIS: SYNCOPE CARDIAC HISTORY: CATHERIZATION: NO SURGERY: NO PROSTHETIC VALVE: NO PACEMAKER: NO MEASUREMENTS (cm) DIASTOLIC (NORMALS) SYSTOLIC (NORMALS) IVSd 0.8 (0.6-1.2) LA Diam 2.0 (1.9-4.0) LVEF 56% LVIDd 4.2 (3.5-5.7) LVIDs 3.0 (2.0-3.5) %FS 29% LVPWd 1.0 (0.6-1.2) Ao Diam 2.5 (2.0-3.7) 2 DIMENSIONAL ASSESSMENT: RIGHT ATRIUM: NORMAL LEFT ATRIUM: NORMAL RIGHT VENTRICLE: NORMAL LEFT VENTRICLE: NORMAL TRICUSPID VALVE: NORMAL MITRAL VALVE: NORMAL PULMONIC VALVE: NORMAL AORTIC VALVE: NORMAL PERICARDIAL EFFUSION: NONE AORTIC ROOT: NORMAL LEFT VENTRICULAR WALL MOTION: NORMAL DOPPLER/COLOR FLOW: NORMAL COMMENTS: NORMAL LEFT VENTRICULAR EJECTION FRACTION 55-60%. NORMAL WALL MOTION. NORMAL DIASTOLIC FUNCTION. TECHNOLOGIST: Kailash DELGADO
--- NOTE | 2021-11-17 19:18 | PN ---
Date of Progress Note: 11/17/2021 Subjective: Seen by bedside. She has been asymptomatic. No arrhythmia recorded on monitor. Review of Systems: No chest pain, shortness of breath, orthopnea, or cough. No nausea, vomiting, or diarrhea. All othe r systems reviewed are negative. Physical Examination: Vital Signs: Reviewed. Head and Neck: Pupils are equal, reactive to light. Intact eye movements. No JVD. No cervical lym phadenopathy. Neck is supple. Thyroid is not enlarged. Lungs: Clear to auscultation bilaterally. No rhonchi, wheezing, or crackles. No accessory muscle u se. Heart: Regular rate and rhythm. No extra sounds. Abdomen: Soft, nontender. Bowel sounds are positive. No organomegaly. No masses or hernia. No ri gidity or rebound. Extremities: No edema, clubbing, or cyanosis. Intact pulses. Skin: No rashes. Neurologic: Alert, awake, oriented x3. No acute focal deficits were appreciated. Investigations: Labs were reviewed. Assessment And Recommendations: Syncope with palpitations. No arrhythmia recorded on the telemetry. Echo was normal. Okay from Cardiology standpoint to be released and we will follow up as an outpat ient next week, and we will plan for event monitor and possible stress test based on the findings of the monitor. /LEWIS Voice ID: [id number] Report ID: [id number]
== END 2021-11-17 14:50 | disposition home or self-care (01) ==
LOC: ER 10:56 → ERHOLD 16:41 → 2ND 20:46
PROVIDERS: ADMIT Internal Medicine; ATTEND Internal Medicine
DX: R55 Syncope and collapse (principal); R00.2 Palpitations; Z20.822 Contact with and (suspected) exposure to COVID-19
CPT/HCPCS: 93005; 93306; 85025 ×2; 80048 ×2; 36415; 83735; 85610; 85379; 80076; 84443; 81003; 84484 ×2; 83880; 70450; 72125; 71045; 99285; 87811; J7120; G0378 ×3

== ENCOUNTER 2022-01-07 11:05 | Emergency (ER) | payer BC ==
[2022-01-07] MEDS ORDERED: NA CHLORIDE 0.9% 1,000 ML ONE ×2 (11:26→13:42)
[2022-01-07 11:37] LABS: Urine Blood 2+ (Negative); Urine Glucose Trace (Negative); Urine Protein 1+ (Negative); Urine Specific Gravity >=1.030 (1.005-1.030)
[2022-01-07 11:58] LABS: Absolute Lymphocytes (CBC) 0.8 K/uL (0.7-4.9); Hematocrit 44.9 % (36.0-45.0); Lymphocytes % 7.1 % (15.3-44.8); MCV 83.6 fL (80-100); MPV 7.4 fL (7.6-11.3); RBC Red Blood Cell Count 5.36 M/uL (3.86-4.86)
[2022-01-07 12:03] LABS: Albumin 4.1 g/dL (3.4-5.0); Bilirubin Total 0.4 mg/dL (0.2-1.0); Potassium 3.4 mmol/L (3.5-5.1); Protein, Total 8.4 g/dL (6.4-8.2)
--- NOTE | 2022-01-07 13:04 | RAD REPORT ---
EXAM DESCRIPTION: CTAbdomen Pelvis W Contrast - 01/07/2022 12:39 pm CLINICAL HISTORY: abd pain, fever, diarrhea COMPARISON: Abdomen Pelvis W Contrast dated 05/31/2019 TECHNIQUE: CT of the abdomen and pelvis was performed. All CT scans are performed using dose optimization technique as appropriate and may include automated exposure control or mA/KV adjustment according to patient size. FINDINGS: Lower chest: No acute abnormality. Liver: No acute abnormality or suspicious lesions. Biliary: No biliary ductal dilatation. Stomach: No significant focal abnormality. Duodenum: No significant focal abnormality. Pancreas: No significant abnormality. Spleen: No significant abnormality. Adrenal: No suspicious lesions. Kidney/ureter: No hydronephrosis. No renal calculi. Retroperitoneum: No retroperitoneal adenopathy. Vascular: No aneurysm. Bowel: No significant focal abnormality. Peritoneum: Fluid in some easy formed stool within the colon. No bowel obstruction. Normal appendix. Liquid stool contents with the gas trapped along dependent wall of the colon simulates the presence o f pneumatosis. There is not gas, however within the nondependent colonic wall. Bladder: Grossly unremarkable. Reproductive: No adnexal masses. Bones: No acute fracture. Other: n/a IMPRESSION: Nonspecific fluid contents within the colon which may represent diarrhea or a malabsorpt dinesh process. No bowel obstruction. Normal appendix.
--- NOTE | 2022-01-07 13:42 | ER ---
Nurse's Notes [facility] Name: Luisa Cee Age: 26 yrs Sex: Female : 1995 Arrival Date: 01/07/2022 Time: 11:07 Bed 6 Private MD: Diagnosis: Diarrhea, unspecified;Dehydration;Palpitations Presentation: 01/07 11:37 Chief complaint: Patient states: C/O diarrhea, fatigue X 4 days. Denies N/V. Pt ld1 reporting high heart rate. Coronavirus screen: At this time, the client does not indicate any symptoms associated with coronavirus-19. Ebola Screen: No symptoms or risks identified at this time. Initial Sepsis Screen: Does the patient meet any 2 criteria? No. Patient's initial sepsis screen is negative. Does the patient have a suspected source of infection? No. Patient's initial sepsis screen is negative. Risk Assessment: Do you want to hurt yourself or someone else? Patient reports no desire to harm self or others. Onset of symptoms was January 07, 2022. 11:37 Method Of Arrival: Ambulatory ld1 11:37 Acuity: LOPEZ 3 ld1 Triage Assessment: 11:39 General: Appears in no apparent distress. comfortable, Behavior is calm, cooperative, ld1 appropriate for age. Pain: Denies pain. EENT: No signs and/or symptoms were reported regarding the EENT system. Neuro: Level of Consciousness is awake, alert, obeys commands, Oriented to person, place, time, situation. Cardiovascular: Capillary refill < 3 seconds Patient's skin is warm and dry. Respiratory: Airway is patent Respiratory effort is even, unlabored. GI: Abdomen is flat, non-distended, Reports diarrhea. : No signs and/or symptoms were reported regarding the genitourinary system. Derm: No signs and/or symptoms reported regarding the dermatologic system. Musculoskeletal: No signs and/or symptoms reported regarding the musculoskeletal system. 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 - Social history:: Smoking status: Patient denies any tobacco usage or history of. Patient/guardian denies using alcohol. - Family history:: not pertinent. - Hospitalizations: : No recent hospitalization is reported. Screenin:40 Abuse screen: Denies threats or abuse. Denies injuries from another. Nutritional ld1 screening: No deficits noted. Tuberculosis screening: No symptoms or risk factors identified. Fall Risk None identified. Assessment: 11:40 Reassessment: See triage assessment. ld1 13:05 Reassessment: Patient appears in no apparent distress at this time. No changes from ld1 previously documented assessment. Patient and/or family updated on plan of care and expected duration. Pain level reassessed. Patient is alert, oriented x 3, equal unlabored respirations, skin warm/dry/pink. Vital Signs: 11:37 BP 105 / 75; Pulse 101; Resp 18; Pulse Ox 100% on R/A; Weight 65.77 kg; Height 5 ft. 3 ld1 in. (160.02 cm); Pain 0/10; 13:03 BP 105 / 66; Pulse 97; Resp 21; Pulse Ox 100% on R/A; ld1 13:54 BP 105 / 64; Pulse 91; Resp 17; Pulse Ox 99% on R/A; ld1 11:37 Body Mass Index 25.69 (65.77 kg, 160.02 cm) ld1 ED Course: 11:07 Patient arrived in ED. am2 11:08 Ant Shipley MD is Attending Physician. rn 11:20 Purnima Gary RN is Primary Nurse. ld1 11:39 Triage completed. ld1 11:39 Arm band placed on right wrist. ld1 11:40 Patient has correct armband on for positive identification. Placed in gown. Bed in low ld1 position. Call light in reach. Side rails up X2. fine arts instructor on. Pulse ox on. NIBP on. Door closed. Noise minimized. Warm blanket given. 11:40 No provider procedures requiring assistance completed. Inserted saline lock: 20 gauge ld1 in right antecubital area, using aseptic technique. Blood collected. 12:41 CT Abd/Pelvis - IV Contrast Only In Process Unspecified. EDMS 14:36 IV discontinued, intact, bleeding controlled, No redness/swelling at site. ld1 Administered Medications: 11:41 Drug: NS 0.9% 1000 ml Route: IV; Rate: 1 bolus; Site: right antecubital; ld1 11:41 Drug: NS 0.9% 1000 ml Route: IV; Rate: 1000 ml; Site: right antecubital; ld1 13:45 Drug: NS 0.9% 1000 ml Route: IV; Rate: 1000 ml; Site: right antecubital; ld1 Medication: 11:40 VIS not applicable for this client. ld1 Outcome: 13:41 Discharge ordered by . rn 14:36 Discharged to home ambulatory, with family. ld1 14:36 Condition: stable 14:36 Discharge instructions given to patient, Instructed on discharge instructions, follow up and referral plans. Demonstrated understanding of instructions, follow-up care. 14:36 Patient left the ED. ld1 Signatures: Dispatcher [employer] EDAnt Duran MD MD rn Moreno, Amanda am2 Dibbern, Lauren RN RN ld1
--- NOTE | 2022-01-07 13:42 | EDPHYS ---
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 11:43 The patient presents to the emergency department with nausea, diarrhea, abdominal pain. rn Onset: The symptoms/episode began/occurred 3 day(s) ago. Possible causes: unknown. The symptoms are aggravated by nothing. The symptoms are alleviated by nothing. Associated signs and symptoms: Pertinent positives: abdominal pain, diarrhea, nausea, Pertinent negatives: fever, GI bleeding. Severity of symptoms: At their worst the symptoms were moderate in the emergency department the symptoms are unchanged. The patient has experienced a previous episode. The patient has been recently seen by a physician:. Pt reports diarrhea for a few days, non-bloody, assoc with nausea. Seen by pcp recently and put on abx for possible UTI. + dehydrated and feels lightheaded. . 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 - Social history:: Smoking status: Patient denies any tobacco usage or history of. Patient/guardian denies using alcohol. - Family history:: not pertinent. - Hospitalizations: : No recent hospitalization is reported. ROS: 11:43 Constitutional: Negative for fever, chills, and weight loss, Eyes: Negative for injury, rn pain, redness, and discharge, Neck: Negative for injury, pain, and swelling, Cardiovascular: + palpitations Respiratory: Negative for shortness of breath, cough, wheezing, and pleuritic chest pain, Abdomen/GI: Negative for constipation MS/Extremity: Negative for injury and deformity, Skin: Negative for injury, rash, and discoloration, Neuro: Negative for headache, numbness, tingling, and seizure. Exam: 11:43 Constitutional: This is a well developed, well nourished patient who is awake, alert, rn and in no acute distress. Head/Face: Normocephalic, atraumatic. ENT: dry MM Cardiovascular: Tachycardic, regular. No pulse deficits. Respiratory: Mild tachypnea, speaking full sentences. Abdomen/GI: soft, mild lower abd tenderness Skin: Warm, dry MS/ Extremity: Pulses equal, no cyanosis. Neuro: Awake and alert, GCS 15 Vital Signs: 11:37 BP 105 / 75; Pulse 101; Resp 18; Pulse Ox 100% on R/A; Weight 65.77 kg; Height 5 ft. 3 ld1 in. (160.02 cm); Pain 0/10; 13:03 BP 105 / 66; Pulse 97; Resp 21; Pulse Ox 100% on R/A; ld1 13:54 BP 105 / 64; Pulse 91; Resp 17; Pulse Ox 99% on R/A; ld1 11:37 Body Mass Index 25.69 (65.77 kg, 160.02 cm) ld1 MDM: 11:08 Patient medically screened. rn 13:39 Differential diagnosis: Nonspecific abd pain, appendicitis, diverticulitis, viral rn gastroenteritis, gastroenteritis, colitis. Data reviewed: vital signs, nurses notes, lab test result(s), radiologic studies, CT scan, and as a result, I will discharge patient. Counseling: I had a detailed discussion with the patient and/or guardian regarding: the historical points, exam findings, and any diagnostic results supporting the discharge/admit diagnosis, lab results, radiology results, the need for outpatient follow up, to return to the emergency department if symptoms worsen or persist or if there are any questions or concerns that arise at home. Response to treatment: the patient's symptoms have markedly improved after treatment, and as a result, I will discharge patient. Special discussion: Based on the patient's Hx, exam, and Dx evaluation, there is no indication for emergent surgery or inpatient Tx. It is understood by the patient/guardian that if the Sx's persist or worsen they need to return immediately for re-evaluation. I discussed with the patient/guardian in detail that at this point there is no indication for admission to the hospital. It is understood, however, that if the symptoms persist or worsen the patient needs to return immediately for re-evaluation. Based on the history and exam findings, there is no indication for further emergent testing or inpatient evaluation. I discussed with the patient/guardian the need to see the primary care provider for further evaluation of the symptoms. ED course: Pt improved, sitting up and smiling, ct shows diarrhea to come, but no colitis or infectious process. No surgical need. Stable vitals. Will dc home with return precautions. After discussion with patient, no abx given lack of colitis findings, and patient does not want to increase risk of cdiff. . 01/07 11:20 Order name: CBC with Diff; Complete Time: 12:25 rn 01/07 11:20 Order name: CMP; Complete Time: 12:25 rn 01/07 11:20 Order name: Lipase; Complete Time: 12:25 rn 01/07 11:20 Order name: CT Abd/Pelvis - IV Contrast Only; Complete Time: 13:14 rn 01/07 11:37 Order name: Urine Dipstick-Ancillary; Complete Time: 12:25 EDMS 01/07 11:43 Order name: Urine --Ancillary (enter results); Complete Time: 12:25 eb 01/07 11:20 Order name: IV Saline Lock; Complete Time: 11:41 rn 01/07 11:20 Order name: Labs collected and sent; Complete Time: 11:41 rn 01/07 11:20 Order name: Urine Dipstick-Ancillary (obtain specimen); Complete Time: 11:41 rn 01/07 11:20 Order name: Urine Test (obtain specimen); Complete Time: 11:41 rn Administered Medications: 11:41 Drug: NS 0.9% 1000 ml Route: IV; Rate: 1 bolus; Site: right antecubital; ld1 11:41 Drug: NS 0.9% 1000 ml Route: IV; Rate: 1000 ml; Site: right antecubital; ld1 13:45 Drug: NS 0.9% 1000 ml Route: IV; Rate: 1000 ml; Site: right antecubital; ld1 Disposition Summary: 01/07/22 13:41 Discharge Ordered Location: Home rn Problem: new rn Symptoms: have improved rn Condition: Stable rn Diagnosis - Diarrhea, unspecified rn - Dehydration rn - Palpitations rn Followup: rn - With: Private Physician - When: As needed - Reason: Recheck today's complaints, Re-evaluation by your physician Discharge Instructions: - Discharge Summary Sheet rn - Dehydration, Adult rn - Diarrhea, Adult rn - Palpitations rn Forms: - Medication Reconciliation Form rn - Thank You Letter rn - Antibiotic rn interventional - Prescription Opioid Use rn Signatures: Dispatcher [employer] Ant Woods MD MD rn Purnima Gary RN RN ld1
[2022-01-07 15:03] VITALS: BP 105/64; O2SAT 99
== END 2022-01-07 14:36 | disposition home or self-care (01) ==
LOC: ER 11:05
DX: E86.0 Dehydration (principal); R00.2 Palpitations; Z88.8 Allergy status to other drugs, medicaments and biological substances
CPT/HCPCS: 85025; 36415; 81025; 81003; 83690; 80053; 74177; 99284; Q9967; J7030 ×2

== ENCOUNTER 2022-01-18 11:31 | Day surgery (SDC) | payer BC ==
[2022-01-17 10:53] LABS: Absolute Lymphocytes (CBC) 1.4 K/uL (0.7-4.9); Hematocrit 36.3 % (36.0-45.0); Lymphocytes % 22.4 % (15.3-44.8); MCV 82.8 fL (80-100); MPV 6.6 fL (7.6-11.3); RBC Red Blood Cell Count 4.39 M/uL (3.86-4.86)
[2022-01-17 10:59] LABS: Protime INR 0.99
[2022-01-17 11:26] LABS: Potassium 3.9 mmol/L (3.5-5.1)
[~2022-01-18 11:31] MED LIST: NA CHLORIDE 0.9% 500 ML ONE
[2022-01-18] MEDS ORDERED: HEPA 1000U/500MLS 2,000 UNIT/1,000 ML BAG IV ONE (12:25)
[2022-01-18] MEDS ORDERED: LIDOCAINE 1% 20 ML MDV ONE (12:25)
[2022-01-18] MEDS ORDERED: MIDAZOLAM HCL 2 MG/2 ML INJ ONE (12:26)
[2022-01-18] MEDS ORDERED: FENTANYL CITR 100 MCG/2 ML ONE (12:26)
[2022-01-18] MEDS ORDERED: VERAPAMIL HCL 10 MG/4 ML VIAL IV ONE (12:27)
[2022-01-18] MEDS ORDERED: ATROPINE SULF 1 MG/10 ML SYR IV ONE (12:27)
[2022-01-18] MEDS ORDERED: HEPARIN 10,000 UNIT/10 ML VIAL IV ONE (12:27)
[2022-01-18] MEDS ORDERED: NITROGLYCERIN 100 MCG/ML SYR (for cath lab use only) IV ONE (12:27)
[2022-01-18] MEDS ORDERED: HEPARIN 5000 UNIT/ML 1 ML VIAL ONE (12:27)
[2022-01-18] MEDS ORDERED: NA CHLORIDE 0.9% 500 ML ONE (14:03)
--- NOTE | 2022-01-18 14:19 | EKG ---
Test Date: 2022-01-17 Test Time: 10:30:36 Survey Chief: ISAIAS MEASUREMENT RESULTS: Intervals: Rate: 75 DE: 108 QRSD: 96 QT: 376 QTc: 419 [place]: P: 66 DE: 108 QRS: 68 T: 62 INTERPRETIVE STATEMENTS: Sinus rhythm with short DE Otherwise normal ECG Compared to ECG 07/03/2012 16:19:37 Short DE interval now present Electronically Signed On 01-18-22 14:17:19 CDT by Justo Bach
--- NOTE | 2022-01-18 14:36 | OP ---
Date of Procedure: 01/18/2022 Surgeon: ZO GANDARA Procedures Performed: 1.Selective coronary angiogram. 2.IFR of the proximal ramus intermedius moderate disease. Value was insignificant at 0.98. Indication: Chest pain with abnormal stress test. Access: Right radial artery 6-Afghan closed with TR band. Complications: None. Bleeding: Less than 10 mL. Anesthesia: Total sedation time was 35 minutes. Used fentanyl and Versed. Description Of Procedure: After risks, benefits, and alternatives were explained, the patient agreed to procedure and signed informed consent. The patient was brought into the cardiac catheterization laboratory, prepped and draped in the usual sterile fashion. Then, I accessed right radial artery us ing pediatric micropuncture kit, placed a 6-Afghan Slender sheath and took 5-Afghan Bates 4.0 cathete r into the aortic root, engaged left main and right coronary artery, took standard views. I then gav e systemic heparin to assure ACT level above 250. Then, I took a pressure wire into the aortic root. Pressures were equalized and a wire was advanced to the ramus intermedius passing the proximal area of stenosis and the IFR was done and it was normal at 0.98. Then, the wire was pulled and there was no drift. Final angiogram was satisfactory. Then, I removed the catheter and the sheath and placed TR band with good hemostasis. Findings: 1.Left main; large, normal. 2.LAD; large and normal, normal diagonal branches. 3.Ramus intermedius is a large vessel with proximal 40% stenosis with a negative FFR of 0.98. 4.Left circumflex; moderate size and normal. 5.RCA; large, dominant, and normal. Conclusion: Moderate ramus intermedius disease with insignificant IFR value of 0.98, otherwise no co ronary artery disease. Plan: Medical management with aspirin and statin. SR/MODL Voice ID: [id number] Report ID: [id number]
[2022-01-18 15:47] VITALS: TEMP 97.6
[2022-01-18] MEDS ORDERED: ACETAMINOPHEN 325 MG TABLET ONE (16:11)
[2022-01-18 16:21] VITALS: O2SAT 99
[2022-01-18 16:51] VITALS: BP 97/62
== END 2022-01-18 17:08 | disposition home or self-care (01) ==
LOC: CCL 11:31
PROVIDERS: ATTEND Internal Medicine
DX: I25.10 Atherosclerotic heart disease of native coronary artery without angina pectoris (principal); R00.2 Palpitations; R55 Syncope and collapse; Z88.8 Allergy status to other drugs, medicaments and biological substances
CPT/HCPCS: 93005; 85025; 80048; 36415; 84703; 85610; 85730; 92979; 93454; C1893; Q9966; J1644 ×2; J2250; J3010; J7040 ×2

== ENCOUNTER 2022-02-12 09:20 | Emergency (ER) | payer BC ==
--- OUTSIDE RECORDS SUMMARY | 2022-02-12 09:23 | XMS REPORT | Continuity of Care Document ---
:1995 Author Organization [facility] t Address [address] [place] [address] Care Team Providers Name Role Phone Radiology Attending Clinician Unavailable RADIOLOGY Attending Clinician Unavailable Kalin Galvez Attending Clinician KALIN MAHONEY Attending Clinician Unavailable Doctor Unassigned, [place] Attending Clinician Unavailable Payers Payer Name Policy Type Policy Number Effective Date Expiration Date alycia [facility] [id number] 2017 2020 CHOICE MEDICAID 00:00:00 00:00:00 Problems Condition Condition Condition Status Onset Resolution Last Treating Co mments Source Name Details Category Date Date Treatment Clinician Date Obesity Obesity Disease Active Univers (BMI (BMI 7-31 ity of 30-39.9) 30-39.9) 00:00: [address] Normal Normal Disease Active Univers labor labor 7-30 ity of 00:00: [address] History of History of Disease Active U nildaers depression depression 5-30 it y of 00:00: [address] History of History of Disease Active U nivers anxiety anxiety 5-30 ity of 00:00: [address] [place] Disease Active Univers ligament ligament 5-30 ity of pain pain 00:00: [address] High-risk High-risk Disease Active Uni vers 5-30 ity of in third in third 00:00: [place] trimester trimester 00 [facility] Allergies, Adverse Reactions, Alerts Allergy Allergy Status Severity Reaction(s) Onset Inactive Treating Comm ents Source Name Type Date Date Clinician Clindamy Propensi Active Swelling Univ ers alo-Angelo ty to 7-10 ity of oyl adverse 00:00: [place] Peroxide reaction 00 Medica l s Branch CLINDAMY DRUG Active Swelling 2012-0 Univer s ALO-ANGELO 7-10 ity of OYL 00:00: [place] PEROXIDE 00 Medical Branch Social History Social Habit Start Date Stop Date Quantity Comments Source Exposure to Not sure [facility] SARS-CoV-2 [place] Medical (event) Branch Tobacco use and 2017-11-25 2017-11-25 Never used Universit y of exposure 00:00:00 00:00:00 [facility] Branch Alcohol intake 2017-11-25 2017-11-25 Current University of 00:00:00 00:00:00 non-drinker of [facility] alcohol Branch (finding) Sex Assigned At [birth year] Universit y of 00:00:00 00:00:00 [facility] Smoking Status Start Date Stop Date Source Never smoker [facility] Medical Branch Medications Ordered Filled Start [...] Medical D3) 1,000 Branch unit tablet cholecalcif Yes 1000U Take 1,000 Univers rohith, [...] Medical tablet Branch Adapalene Yes Apply to [facility] ers (DIFFERIN) 7-10 affected ity o f 0.3 % Gel 00:00: area(s) [place] 00 every Medical evening. Branch Adapalene Yes Apply to [facility] ers (DIFFERIN) 7-10 affected ity o f 0.3 % Gel 00:00: area(s) [place] 00 every Medical evening. Branch Adapalene Yes Apply to [facility] ers (DIFFERIN) 7-10 affected ity o f 0.3 % Gel 00:00: area(s) [place] 00 every Medical evening. Branch Adapalene Yes Apply to [facility] ers (DIFFERIN) 7-10 affected ity o f 0.3 % Gel 00:00: area(s) [place] 00 every Medical evening. Branch Adapalene Yes Apply to [facility] ers (DIFFERIN) 7-10 affected ity o f 0.3 % Gel 00:00: area(s) [place] 00 every Medical evening. Branch Immunizations Ordered Filled Immunization Date Status Comments [facility] e Immunization Name Name [facility] 2017-08-14 Completed [facility] 00:00:00 [facility] 2017-08-14 Completed [facility] 00:00:00 [facility] 2017-08-14 Completed [facility] 00:00:00 [facility] 2017-08-14 Completed [facility] 00:00:00 [facility] 2017-08-14 Completed [facility] 00:00:00 [facility] Procedures Procedure Date / Time Performing Clinician Source Performed XR RIBS 3 VW RIGHT 2020-08-05 17:40:58 Sharona Kang [facility] US ABDOMEN LIMITED 2020-07-26 22:22:14 Kalin Mahoney [facility] CONSENT/REFUSAL FOR 2020-07-26 22:02:21 [facility] Un[facility], [facility] ASSIGNMENT OF BENEFITS 2020-07-26 22:02:09 Doctor Unassigned, No [facility] US PELVIS COMPLETE WITH 2020-03-31 21:57:34 Requisition, Paper U [facility] TRANSVAGINAL [facility] ASSIGNMENT OF BENEFITS 2020-03-31 20:53:38 Doctor Unassigned, No [facility] Encounters Start End Encounter Admission Attending Care Care Encounter Source Date/Time Date/Time Type Type Clinicians Facility Department ID 2020-08-05 2020-08-05 [facility] Radiology [facility] [id number] Univers 12:27:03 23:59:00 Encounter [place] [id number] ity of [place] [id number] [facility] [id number] [facility] [address] 2020-08-05 2020-08-05 Outpatient R RADIOLOGY [facility] [id number] Univers 00:00:00 00:00:00 ity of [facility] 2020-07-26 2020-07-26 [facility] [id number] Univers 17:00:00 23:59:00 Encounter Kalin L [place] [id number] ity of [place] [id number] [facility] [id number] [address] 2020-07-26 2020-07-26 Outpatient R [facility] [id number] Univers 00:00:00 00:00:00 KALIN ity [facility] 2020-07-26 2020-07-26 Orders Doctor [place] [id number] Univers 00:00:00 00:00:00 Only Unassigned, MITCH [id number] ity of [place] [facility] [id number] [facility] [id number] [facility] 009 Branch 2020-03-31 2020-03-31 [facility] Radiology [facility] [id number] Univers 14:55:24 23:59:00 Encounter [place] [id number] ity of [place] [id number] [facility] [id number] [facility] [address] 2020-03-31 2020-03-31 Outpatient R RADIOLOGY [facility] [id number] Univers 00:00:00 00:00:00 ity [facility] 2020-03-31 2020-03-31 Orders Doctor [place] [id number] Univers 00:00:00 00:00:00 Only Unassigned, MITCH [id number] ity of [place] [facility] [id number] Norberto as [id number] [facility] 009 Branch Results Test Description Test Time Test Comments Results Result Sour e Comments XR RIBS 3 VW 2020-07-17 No rib fracture, Unive rsity of RIGHT 1 rib lesion, or [place] [facility] 19:43:02 pleural effusion Branch evident. RL: [id number] Patient name: KINSEY CHOWDARYB: 1995 25 years EXAMINATION: XR RIBS 3 VW RIGHT Ordering Physician: SHARONA KANG CLINICAL HISTORY:Pleuritic chest pain COMPARISON:None TECHNIQUE:Single frontal view the chest and multiple views of the left ribsperformed. FINDINGS:No discrete rib fracture. No rib lesions identified. No effusion orpneumothorax. No definite spine fracture. No pulmonary infiltrates. Heartsize is normal without edema. Normal aortic contours. [facility], Radiant Results Inft User - 08/05/2020 2:44 PM CDTPatient name: KINSEY CHOWDARYMarques: 1995 25 years EXAMINATION: [...] LIMITED 1 is no evidence of a [facility] 23:08:30 focal subcutaneous Branch mass or cyst [...] abdomen and pelvis CT with contrast isrecommended. [facility], Radiant Results Inft User - 07/26/2020 6:09 [...] contrast isrecommended.RL: [id number] PELVIS 2020-03-18 HISTORY: PCOS [facility] WITH 4 syndrome. TECHNIQUE: [facility] TRANSVAGINAL 22:01:30 Both transabdominal Bra nch and transvaginal pelvic ultrasound studieswere completed by [...] ovaries. Sonographic findings are not typicalfor PCOS. [facility], Radiant Results Inft User - 03/31/2020 4:02 [...]
[2022-02-12 11:10] LABS: Absolute Lymphocytes (CBC) 1.7 K/uL (0.7-4.9); Hematocrit 37.2 % (36.0-45.0); Lymphocytes % 21.5 % (15.3-44.8); MCV 83.2 fL (80-100); MPV 7.1 fL (7.6-11.3); RBC Red Blood Cell Count 4.47 M/uL (3.86-4.86)
[2022-02-12 11:29] LABS: Magnesium 2.3 mg/dL (1.8-2.4); Potassium 4.1 mmol/L (3.5-5.1); Troponin High Sensitivity 3.8 pg/mL (<58.9)
--- NOTE | 2022-02-12 11:59 | RAD REPORT ---
EXAM DESCRIPTION: RAD - Chest Single View - 02/12/2022 10:20 am CLINICAL HISTORY: CHEST PAIN Chest pain. COMPARISON: Chest Single View dated 11/16/2021; ABDOMEN 1 VIEW KUB dated 01/06/2013; CHEST PA AND LAT 2 VIEW dated 06/27/2012 FINDINGS: Portable technique limits examination quality. The lungs are grossly clear. The heart is normal in size. No displaced fractures. IMPRESSION: No acute intrathoracic process suspected.
--- NOTE | 2022-02-12 12:02 | ER ---
Nurse's Notes [facility] Name: Luisa Cee Age: 27 yrs Sex: Female : 1995 Arrival Date: 02/12/2022 Time: 09:22 Bed 14 Private MD: Diagnosis: Chest pain, unspecified Presentation: 02/12 09:34 Chief complaint: Patient states: Syncopal episode on Saturday while at work, squeezing ss in chest has gotten worse. HX of Heart disease. Coronavirus screen: Client denies travel out of the [place] in the last 14 days. Ebola Screen: Patient denies exposure to infectious person. Patient denies travel to an Ebola-affected area in the 21 days before illness onset. Initial Sepsis Screen: Does the patient meet any 2 criteria? No. Patient's initial sepsis screen is negative. Does the patient have a suspected source of infection? No. Patient's initial sepsis screen is negative. Risk Assessment: Do you want to hurt yourself or someone else? Patient reports no desire to harm self or others. Onset of symptoms was February 10, 2022. 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 - Social history:: Smoking status: Patient denies any tobacco usage or history of. Screenin:00 Abuse screen: Denies threats or abuse. Denies injuries from another. Nutritional ld1 screening: No deficits noted. Tuberculosis screening: No symptoms or risk factors identified. Fall Risk None identified. Assessment: 11:00 General: Appears in no apparent distress. comfortable, Behavior is calm, cooperative, ld1 appropriate for age. Pain: Complains of pain in chest Pain does not radiate. Pain currently is 5 out of 10 on a pain scale. Quality of pain is described as heavy, Pain began 1 hour ago. Is intermittent. Neuro: Level of Consciousness is awake, alert, obeys commands, Oriented to person, place, time, situation, Appropriate for age. Cardiovascular: Capillary refill < 3 seconds Patient's skin is warm and dry. Rhythm is sinus rhythm. Respiratory: Airway is patent Respiratory effort is even, unlabored. GI: Abdomen is flat, non-distended. : No signs and/or symptoms were reported regarding the genitourinary system. EENT: No signs and/or symptoms were reported regarding the EENT system. Derm: No signs and/or symptoms reported regarding the dermatologic system. Musculoskeletal: No signs and/or symptoms reported regarding the musculoskeletal system. Vital Signs: 09:34 BP 114 / 70; Pulse 80; Resp 18; Temp 98.6(TE); Pulse Ox 100% on R/A; Weight 70.31 kg; ss Height 5 ft. 0 in. (152.40 cm); Pain 8/10; 11:00 BP 104 / 57; Pulse 70; Resp 20; Pulse Ox 100% on R/A; Pain 5/10; ld1 11:26 BP 96 / 55; Pulse 71; Resp 19; Pulse Ox 100% on R/A; ld1 09:34 Body Mass Index 30.27 (70.31 kg, 152.40 cm) ED Course: 09:22 Patient arrived in ED. rg4 09:26 Annika Luz FNP-C is PHCP. kb 09:26 Fabián Blandon DO is Attending Physician. kb 09:35 Triage completed. ss 09:36 Arm band placed on right wrist. ss 10:09 Purnima Gary, RN is Primary Nurse. ld1 10:22 XRAY Chest (1 view) In Process Unspecified. EDMS 11:00 Patient has correct armband on for positive identification. Placed in gown. Bed in low ld1 position. Call light in reach. Side rails up X2. potline monitor on. Pulse ox on. NIBP on. Door closed. Noise minimized. Warm blanket given. 11:00 No provider procedures requiring assistance completed. Inserted saline lock: 20 gauge ld1 in right antecubital area, using aseptic technique. Blood collected. Patient maintains SpO2 saturation greater than 95% on room air. 12:23 IV discontinued, intact, bleeding controlled, No redness/swelling at site. ld1 Administered Medications: No medications were administered Medication: 11:00 VIS not applicable for this client. ld1 Outcome: 12:01 Discharge ordered by MD. sneed 12:23 Discharged to home ambulatory. ld1 12:23 Condition: stable 12:23 Discharge instructions given to patient, Instructed on discharge instructions, follow up and referral plans. Demonstrated understanding of instructions, follow-up care. 12:23 Patient left the ED. ld1 Signatures: Dispatcher [employer] EDAnnika Clayton, BIG DATA SOFTWARE ENGINEER-C JAIR-Jeri Velasquez, RN RN Elham Ferreira rg4 Purnima Gary RN RN ld1
--- NOTE | 2022-02-12 12:02 | EDPHYS ---
Physician Documentation [facility] Name: Luisa Cee Age: 27 yrs Sex: Female : 1995 Arrival Date: 02/12/2022 Time: 09:22 Bed 14 Private MD: ED Physician Fabián Blandon HPI: 02/12 11:22 This 27 yrs old Female presents to ER via Ambulatory with complaints of Chest kb Pain. 11:22 The patient or guardian reports chest pain that is located primarily in the substernal kb area. The pain does not radiate. Associated signs and symptoms: Pertinent positives: syncope. The chest pain is described as squeezing. Duration: The patient or guardian reports a single episode, that is still ongoing. Modifying factors: The symptoms are alleviated by nothing. the symptoms are aggravated by nothing. Severity of pain: At its worst the pain was moderate in the emergency department the pain is unchanged. The patient has experienced similar episodes in the past. The patient has not recently seen a physician. 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 States she had substernal chest pain since then that has progressively gotten worse. Reports she is a patient of Dr. Henderson.. 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 - Social history:: Smoking status: Patient denies any tobacco usage or history of. ROS: 11:21 Constitutional: Negative for fever, chills, and weight loss. kb 11:21 Cardiovascular: Positive for chest pain, Negative for edema, orthopnea, palpitations, paroxysmal nocturnal dyspnea. 11:21 Neuro: Positive for syncope. 11:21 All other systems are negative. Exam: 11:21 Constitutional: This is a well developed, well nourished patient who is awake, alert, kb and in no acute distress. Head/Face: Normocephalic, atraumatic. ENT: Moist Mucous membranes Cardiovascular: Regular rate and rhythm with a normal S1 and S2. No gallops, murmurs, or rubs. No pulse deficits. Respiratory: Respirations even and unlabored. No increased work of breathing. Talking in full sentences Abdomen/GI: Soft, non-tender. No distention Skin: Warm, dry with normal turgor. Normal color. MS/ Extremity: Pulses equal, no cyanosis. Neurovascular intact. Full, normal range of motion. Neuro: Awake and alert, GCS 15, oriented to person, place, time, and situation. Moves all extremities. Normal gait. Psych: Awake, alert, with orientation to person, place and time. Behavior, mood, and affect are within normal limits. 11:21 ECG was reviewed by the Attending Physician. Vital Signs: 09:34 BP 114 / 70; Pulse 80; Resp 18; Temp 98.6(TE); Pulse Ox 100% on R/A; Weight 70.31 kg; ss Height 5 ft. 0 in. (152.40 cm); Pain 8/10; 11:00 BP 104 / 57; Pulse 70; Resp 20; Pulse Ox 100% on R/A; Pain 5/10; ld1 11:26 BP 96 / 55; Pulse 71; Resp 19; Pulse Ox 100% on R/A; ld1 09:34 Body Mass Index 30.27 (70.31 kg, 152.40 cm) ss MDM: 09:27 Patient medically screened. 11:21 Data reviewed: vital signs, nurses notes. Data interpreted: Pulse oximetry: on room air kb is 100 %. Interpretation: normal. 12:00 Counseling: I had a detailed discussion with the patient and/or guardian regarding: the kb historical points, exam findings, and any diagnostic results supporting the discharge/admit diagnosis, lab results, radiology results, the need for outpatient follow up, a blacktop spreader, a family practitioner, to return to the emergency department if symptoms worsen or persist or if there are any questions or concerns that arise at home. 02/12 09:35 Order name: Basic Metabolic Panel; Complete Time: 11:34 kb 02/12 09:35 Order name: CBC with Diff; Complete Time: 11:24 kb 02/12 09:35 Order name: Magnesium; Complete Time: 11:34 kb 02/12 09:35 Order name: NT PRO-BNP; Complete Time: 11:34 kb 02/12 09:35 Order name: Troponin HS; Complete Time: 11:34 kb 02/12 09:35 Order name: XRAY Chest (1 view); Complete Time: 12:00 kb 02/12 09:35 Order name: EKG; Complete Time: 09:36 kb 02/12 09:35 Order name: Cardiac monitoring; Complete Time: 10:10 kb 02/12 09:35 Order name: EKG - Nurse/Tech; Complete Time: 10:55 kb 02/12 09:35 Order name: IV Saline Lock; Complete Time: 11:00 kb 02/12 09:35 Order name: Labs collected and sent; Complete Time: 11:00 kb 02/12 09:35 Order name: O2 Per Protocol; Complete Time: 10:10 kb 02/12 09:35 Order name: O2 Sat Monitoring; Complete Time: 10:10 kb EC:21 Rate is 69 beats/min. Rhythm is regular. QRS [place] is Normal. [place] interval is normal at kb 116 msec. QRS interval is normal at 88 msec. QT interval is normal at 402 msec. Administered Medications: No medications were administered Disposition: 19:13 Co-signature as Attending Physician, Fabián Blandon DO I was immediately available on-site ms3 in the Emergency Department for consultation in the care of the patient.. Disposition Summary: 02/12/22 12:01 Discharge Ordered Location: Home kb Condition: Stable kb Diagnosis - Chest pain, unspecified kb Followup: kb - With: Emergency Department - When: As needed - Reason: Worsening of condition Followup: kb - With: Private Physician - When: 2 - 3 days - Reason: Recheck today's complaints, Continuance of care, Re-evaluation by your physician Discharge Instructions: - Discharge Summary Sheet kb - Nonspecific Chest Pain, Adult, [id number] kb Forms: - Medication Reconciliation Form kb - Thank You Letter kb - Antibiotic Education kb - Prescription Opioid Use kb Signatures: Dispatcher [employer] Annika Casey, TOPPER PACKER-C JAIR-Jeri Velasquez, RN RN Fabián Maya DO DO ms3
[2022-02-12 12:57] VITALS: TEMP 98.6; O2SAT 100
[2022-02-12 12:58] VITALS: BP 96/55
--- NOTE | 2022-02-14 16:31 | EKG ---
Test Date: 2022-02-12 Test Time: 10:52:01 Signals Collection Technician: DALTON MEASUREMENT RESULTS: Intervals: Rate: 69 [place]: 116 QRSD: 88 QT: 376 QTc: 402 [place]: P: 64 [place]: 116 QRS: 58 T: 49 INTERPRETIVE STATEMENTS: Normal sinus rhythm Normal ECG Compared to ECG 01/17/2022 10:30:36 Short [place] interval no longer present Electronically Signed On 02-14-22 16:23:54 TALENT RECRUITER by Joey Casanova
== END 2022-02-12 12:23 | disposition home or self-care (01) ==
LOC: ER 09:20
DX: R07.89 Other chest pain (principal); F41.9 Anxiety disorder, unspecified; I51.9 Heart disease, unspecified; Z79.82 Long term (current) use of aspirin; Z88.8 Allergy status to other drugs, medicaments and biological substances
CPT/HCPCS: 36415; 71045; 80048; 83735; 83880; 84484; 85025; 93005; 99285

== ENCOUNTER 2024-02-25 17:22 | Emergency (ER) | payer OTHER ==
[2024-02-25 18:59] LABS: Specific Gravity < 1.005 (1.005-1.030); Sqamous Epithelial <5 /HPF (None Seen); Urine Bacteria <20 /HPF (<20); Urine Bilirubin NEGATIVE (Negative); Urine Blood 3+ (OVER) (Negative); Urine Clarity Extremely Turbid (Clear); Urine Color Yellow (Yellow); Urine Culture Reflex Order REFLEXED; Urine Glucose NEGATIVE (Negative); Urine Ketones NEGATIVE (Negative); Urine Microscopic Reflex YN ORDER UMIC; Urine Mucus Slight /HPF (None Seen); Urine Nitrite NEGATIVE (Negative); Urine Protein TRACE (Negative); Urine Urobilinogen Normal (Normal)
[2024-02-25 19:00] LABS: Specific Gravity 1.003 (1.005-1.030)
[2024-02-25 19:29] LABS: Absolute Eosinophils 0.1 K/uL (0-0.5); Absolute Monocytes 0.6 K/uL (0.1-1.3); Absolute Neutrophil 11.2 K/uL (1.8-8.0); Basophils % 0.2 % (0-1.3); Eosinophils % 0.5 % (0-4.4); Hematocrit 41.4 % (36.0-45.0); Lymphocytes % 14.2 % (15.3-44.8); MCH 28.3 pg (27.0-35.0); MCHC 33.8 g/dL (32.0-36.0); MCV 83.9 fL (80-100); MPV 7.3 fL (7.6-11.3); Neutrophils % 81.1 % (41.7-73.7); Platelets 457 thou/uL (152-406); RBC Red Blood Cell Count 4.93 M/uL (3.86-4.86); Red Cell Distribution Width 13.2 % (12.1-15.2)
[2024-02-25 19:40] LABS: PT Prothrombin Time 10.8 SECONDS (9.4-12.5); PTT, Activated Partial Thromb 36.6 SECONDS (24.3-36.9); Protime INR 0.96
[2024-02-25 19:48] LABS: Albumin 4.6 g/dL (3.4-5.0); Anion Gap 7.4 mEq/L (5.0-15.0); Bilirubin Total 0.6 mg/dL (0.2-1.0); Globulin 4.7 g/dL (2.3-3.5); Potassium 3.4 mEq/L (3.5-5.1); Protein, Total 9.3 g/dL (6.4-8.2)
[2024-02-25] MEDS ORDERED: MORPHINE 4 MG/ML SYR ONE (20:11)
[2024-02-25] MEDS ORDERED: NA CHLORIDE 0.9% 1,000 ML ONE (20:11)
[2024-02-25] MEDS ORDERED: ONDANSETRON 4 MG/2 ML VIAL ONE (20:11)
--- NOTE | 2024-02-25 20:12 | RAD REPORT ---
EXAMINATION: CT ABDOMEN AND PELVIS WITH CONTRAST CLINICAL INDICATION: ABD PAIN TECHNIQUE: CT abdomen and pelvis was performed, after the administration of IV contrast, as per [facility] protocol. Axial, sagittal and coronal reconstructions were obtained. One or more of the following dose reduction techniques were used: Automated exposure control, adjustment of the mA and k V according to patient size, and iterative reconstruction. Unless otherwise specified, incidental findings do not require dedicated imaging follow-up. COMPARISON: No prior exam. FINDINGS: LOWER CHEST: The visualized lung bases are clear. LIVER: Normal in size and contour. No focal lesion. Grossly unremarkable gallbladder. SPLEEN: Normal size. No focal lesion. PANCREAS: No mass, ductal dilation, or keyshawn-pancreatic fluid. ADRENALS: Normal; no mass. KIDNEYS: Normal size and contour. No hydronephrosis. GASTROINTESTINAL TRACT: No evidence of free air, significant intra-abdominal free fluid, bowel obstru ction or abscess. APPENDIX: Normal appendix. LYMPH NODES: No lymphadenopathy. MUSCULOSKELETAL: No acute or suspicious osseous abnormality. ADDITIONAL FINDINGS: Mildly inflamed appearance to the urinary bladder. IMPRESSION: Cystitis pattern is suggested. Correlation with urinalysis is advised.
[2024-02-25] MEDS ORDERED: CEFTRIAXONE 1000 MG/VIAL ONE (20:45)
--- NOTE | 2024-02-25 21:20 | EDPHYS ---
Physician Documentation [facility] Name: Luisa Cee Age: 29 yrs Sex: Female : 1995 Arrival Date: 02/25/2024 Time: 17:22 Bed 12 Private MD: ED Physician Vicky Hines HPI: 02/24 18:30 This 29 yrs old Female presents to ER via Unassigned with complaints of sb4 Urinary Problem - sent by pcp. 18:30 UTI symptoms x 3 days. started experiencing chills, flank pain, weakness today. PCP sb4 checked urine, positive for UTI, sent to ED for pyelonephritis rule out. patient reports 4 UTIs within the past year. denies any n/v/d. 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 - Infectious Disease History:: Denies. - Social history:: Smoking status: Patient denies any tobacco usage or history of. ROS: 18:30 Abdomen/GI: Negative for abdominal pain, nausea, vomiting, diarrhea, and constipation, sb4 18:30 Constitutional: Positive for chills, 18:30 : Positive for urinary symptoms, pelvic pain, flank pain, urinary frequency, hematuria, burning with urination, 18:30 All other systems are negative, Exam: 18:30 Head/Face: Normocephalic, atraumatic. Eyes: Extra-ocular motions intact. Periorbital sb4 areas with no swelling, redness, or edema. ENT: Mucous membranes moist. Cardiovascular: Regular rate and rhythm with a normal S1 and S2. Respiratory: No increased work of breathing, no retractions or nasal flaring. Abdomen/GI: Soft, non-tender, no distension. Back: No spinal tenderness. No costovertebral tenderness. Full range of motion. Skin: Warm, dry with normal turgor. Normal color with no rashes, no lesions, and no evidence of cellulitis. 18:30 Constitutional: The patient appears alert, awake, uncomfortable, Vital Signs: 18:23 BP 133 / 75; Pulse 100; Resp 17; Temp 98.4; Pulse Ox 100% ; Weight 72.57 kg; Height 5 jl7 ft. 0 in. ; Pain 9/10; 21:48 BP 124 / 77; Pulse 86; Resp 16 S; Temp 97.6(O); Pulse Ox 100% on R/A; lg3 18:23 Body Mass Index 31.25 (72.57 kg, 152.4 cm) jl7 18:23 Pain Scale: Adult jl7 MDM: 18:24 Medical Screening Exam initiated sb4 21:19 Data reviewed: vital signs, nurses notes, lab test result(s), radiologic studies, and sb4 as a result, I will discharge patient. Counseling: I had a detailed discussion with the patient and/or guardian regarding the historical points, exam findings, and any diagnostic results supporting the discharge/admit diagnosis, lab results, radiology results, the need for outpatient follow up, a urologist, to return to the emergency department if symptoms worsen or persist or if there are any questions or concerns that arise at home. 02/24 18:28 Order name: Blood Culture Adult (2) sb4 02/24 18:28 Order name: CBC with Diff; Complete Time: 19:39 sb4 02/24 18:28 Order name: CMP; Complete Time: 19:52 sb4 02/24 18:28 Order name: Lactate w/ 2H reflex if indic.; Complete Time: 19:52 sb4 02/24 18:28 Order name: Protime (+inr); Complete Time: 19:44 sb4 02/24 18:28 Order name: Ptt, Activated; Complete Time: 19:44 sb4 02/24 18:28 Order name: Urinalysis w/ reflexes; Complete Time: 19:02 sb4 02/24 18:29 Order name: Test, Urine; Complete Time: 19:02 sb4 02/24 19:02 Order name: Urine Culture EDMA 02/24 18:28 Order name: CT Abd/Pelvis - IV Contrast Only; Complete Time: 20:14 sb4 02/24 18:28 Order name: IV Saline Lock - Large Bore; Complete Time: 19:33 sb4 02/24 18:28 Order name: Labs collected and sent; Complete Time: 19:33 sb4 Administered Medications: 21:12 Drug: Ondansetron IVP 4 mg IVP once; over 2 minutes Route: IVP; Site: left antecubital; lg3 21:47 Follow up: Response: No adverse reaction; Marked relief of symptoms lg3 21:12 Drug: Rocephin IV 1 grams IV at calculated rate once; Given slow IV push per pharmacy lg3 instructions Route: IV; Rate: calculated rate; Site: left antecubital; 21:47 Follow up: Response: No adverse reaction; IV Status: Completed infusion; IV Intake: [id number] 21:13 Drug: NS 0.9% IV 1000 ml IV at 1000 ml once; to be given as a bolus over 60 minutes lg3 Route: IV; Rate: 1000 ml; Site: left antecubital; 21:47 Follow up: Response: No adverse reaction; IV Status: Completed infusion; IV Intake: lg3 1000ml 21:13 Drug: morphine IVP or IV 4 mg IVP once over 4 mins Route: IVP; Infused Over: 4 mins; lg3 Site: left antecubital; 21:47 Follow up: Response: No adverse reaction; Marked relief of symptoms lg3 Disposition Summary: 02/25/24 21:19 Discharge Ordered Notes: Location: Home sb4 Problem: new sb4 Symptoms: have improved sb4 Condition: Stable sb4 Diagnosis - UTI/ Urinary tract infection, site not specified sb4 Followup: sb4 - With: Esperanza Orozco MD - When: As needed - Reason: Recheck today's complaints, Re-evaluation by your physician Discharge Instructions: - Discharge Summary Sheet sb4 - Urinary Tract Infection, Adult, [id number] sb4 Forms: - Work release form sb4 - Family Work Release sb4 - Antibiotic Education sb4 - Patient Portal Instructions sb4 - Leadership Thank You Letter sb4 Prescriptions: - Cipro 500 mg Oral Tablet - take 1 tablet ORAL route every 12 hours for 7 days; 14 tablet; Refills: 0, sb4 Product Selection Permitted Signatures: Dispatcher [employer] Cristobal Kramer RN RN jl7 Uyen Swanson RN RN lg3 Sammi Vigil PA-C PAJoe sb4 Corrections: (The following items were deleted from the chart) 18:29 18:29 BLOOD CULTURE*+BA.LAB.BRZ ordered. EDMS EDMS 18: 18:29 CBC+H.LAB.BRZ ordered. EDMS EDMS 18: 18:29 COMPREHENSIVE METABOLIC PANEL+C.LAB.BRZ ordered. EDMS EDMS 18: 18:29 LACTATE+C.LAB.BRZ ordered. EDMS EDMS 18: 18:29 PROTIME (+INR)+COAG.LAB.BRZ ordered. EDMS EDMS 18: 18:29 PTT, ACTIVATED+COAG.LAB.BRZ ordered. EDMS EDMS 18: 18:29 Urinalysis+U.LAB.BRZ ordered. EDMS EDMS 18: 18:29 Abdomen Pelvis W Con+CT.RAD.BRZ ordered. EDMS EDMS 18: 18:29 Test, Urine+UC.LAB.BRZ ordered. EDMS EDMS
--- NOTE | 2024-02-25 21:20 | ER ---
Nurse's Notes [facility] Name: Luisa Cee Age: 29 yrs Sex: Female : 1995 Arrival Date: 02/25/2024 Time: 17:22 Bed 12 Private MD: Diagnosis: UTI/ Urinary tract infection, site not specified Presentation: 02/24 18:23 Chief complaint: Patient states: burning with urination x 3 days, back pain since jl7 yesterday. 18:23 Method Of Arrival: Ambulatory 7 18:23 Coronavirus screen: At this time, the client does not indicate any symptoms associated jl7 with coronavirus-19. Ebola Screen: No symptoms or risks identified at this time. Initial Sepsis Screen: Does the patient meet any 2 criteria? No. Patient's initial sepsis screen is negative. Does the patient have a suspected source of infection? No. Patient's initial sepsis screen is negative. Risk Assessment: Do you want to hurt yourself or someone else? Patient reports no desire to harm self or others. Onset of symptoms was February 22, 2024. 18:23 Acuity: LOPEZ 3 jl7 Triage Assessment: 18:33 General: Appears in no apparent distress. uncomfortable, ill, Behavior is calm, jl7 cooperative, appropriate for age. Pain: Complains of pain in low back area Pain currently is 9 out of 10 on a pain scale. Neuro: Level of Consciousness is awake, alert, obeys commands, Oriented to person, place, time, situation. Cardiovascular: No deficits noted. Respiratory: No deficits noted. GI: No deficits noted. : Urine is cloudy. Derm: Skin is pink, warm \T\ dry. 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 - Infectious Disease History:: Denies. - Social history:: Smoking status: Patient denies any tobacco usage or history of. Screenin:00 [facility] ED Fall Risk Assessment (Adult) History of falling in the last 3 months, lg3 including since admission No falls in past 3 months (0 pts) Confusion or Disorientation No (0 pts) Intoxicated or Sedated No (0 pts) Impaired Gait No (0 pts) Mobility Assist Device Used No (0 pt) Altered Elimination No (0 pt) Score/Fall Risk Level 0 - 2 = Low Risk Oriented to surroundings, Maintained a safe environment, Educated pt \T\ family on fall prevention, incl call for assistance when getting out of bed, Assessed \T\ reinforced patient's understanding of fall precautions. Abuse screen: Denies threats or abuse. Denies injuries from another. Nutritional screening: No deficits noted. Tuberculosis screening: No symptoms or risk factors identified. Assessment: 20:00 General: Appears in no apparent distress. comfortable, Behavior is calm, cooperative. lg3 Pain: Complains of pain in low back area Pain currently is 3 out of 10 on a pain scale. Neuro: No deficits noted. Woods Agitation-Sedation Scale (RASS): 0 - Alert and Calm Level of Consciousness is awake, alert, obeys commands, Oriented to person, place, time, situation. Cardiovascular: No deficits noted. Denies chest pain, shortness of breath, Capillary refill < 3 seconds Clubbing of nail beds is absent JVD is absent Patient's skin is warm and dry. Respiratory: No deficits noted. Airway is patent Respiratory effort is even, unlabored, Respiratory pattern is regular, symmetrical. GI: Abdomen is round non-distended. : Reports burning with urination, urinary frequency. EENT: No deficits noted. No signs and/or symptoms were reported regarding the EENT system. Derm: No deficits noted. No signs and/or symptoms reported regarding the dermatologic system. Skin is intact, is healthy with good turgor, Skin is dry, Skin is normal, Skin temperature is warm. Musculoskeletal: No deficits noted. No signs and/or symptoms reported regarding the musculoskeletal system. Circulation, motion, and sensation intact. Range of motion: intact in all extremities. 21:48 Reassessment: Patient appears in no apparent distress at this time. No changes from lg3 previously documented assessment. Patient and/or family updated on plan of care and expected duration. Pain level reassessed. Patient is alert, oriented x 3, equal unlabored respirations, skin warm/dry/pink. Patient states feeling better. Vital Signs: 18:23 BP 133 / 75; Pulse 100; Resp 17; Temp 98.4; Pulse Ox 100% ; Weight 72.57 kg; Height 5 7 ft. 0 in. ; Pain 9/10; 21:48 BP 124 / 77; Pulse 86; Resp 16 S; Temp 97.6(O); Pulse Ox 100% on R/A; lg3 18:23 Body Mass Index 31.25 (72.57 kg, 152.4 cm) jl7 18:23 Pain Scale: Adult 7 ED Course: 17:26 Patient arrived in ED. sj2 17:28 Sammi Vigil PA-C is PHCP. sb4 17:29 Vicky Hines MD is Attending Physician. sb4 18:33 Triage completed. jl7 18:33 Arm band placed on right wrist. jl7 19:17 Radiology exam delayed due to lab results not completed at this time. (BUN/Creatinine) nj test not completed at this time. IV insertion attempt and/or patient not having appropriate IV at this time. 20:00 Patient has correct armband on for positive identification. Placed in gown. Bed in low lg3 position. Call light in reach. Side rails up X 1. Client placed on continuous cardiac and pulse oximetry monitoring. NIBP monitoring applied. Door closed. Noise minimized. Warm blanket given. Pillow given. Family accompanied patient. 20:00 Inserted saline lock: 20 gauge in left antecubital area, using aseptic technique. Blood lg3 collected. Flushed with 10 mL NS. Patient maintains SpO2 saturation greater than 95% on room air. 20:05 CT Abd/Pelvis - IV Contrast Only In Process Unspecified. EDMS 21:19 Esperanza Orozco MD is Referral Physician. sb4 21:48 No provider procedures requiring assistance completed. IV discontinued, intact, lg3 bleeding controlled, No redness/swelling at site. Pressure dressing applied. Administered Medications: 21:12 Drug: Ondansetron IVP 4 mg IVP once; over 2 minutes Route: IVP; Site: left antecubital; lg3 21:47 Follow up: Response: No adverse reaction; Marked relief of symptoms lg3 21:12 Drug: Rocephin IV 1 grams IV at calculated rate once; Given slow IV push per pharmacy lg3 instructions Route: IV; Rate: calculated rate; Site: left antecubital; 21:47 Follow up: Response: No adverse reaction; IV Status: Completed infusion; IV Intake: [id number] 21:13 Drug: NS 0.9% IV 1000 ml IV at 1000 ml once; to be given as a bolus over 60 minutes lg3 Route: IV; Rate: 1000 ml; Site: left antecubital; 21:47 Follow up: Response: No adverse reaction; IV Status: Completed infusion; IV Intake: lg3 1000ml 21:13 Drug: morphine IVP or IV 4 mg IVP once over 4 mins Route: IVP; Infused Over: 4 mins; lg3 Site: left antecubital; 21:47 Follow up: Response: No adverse reaction; Marked relief of symptoms lg3 Medication: 20:00 VIS not applicable for this client. lg3 Intake: 21:47 IV: 10ml; Total: 10ml. lg3 21:47 IV: 1000ml; Total: 1010ml. lg3 Outcome: 21:19 Discharge ordered by . sb4 21:48 Discharged to home ambulatory, with significant other, lg3 21:48 Condition: stable 21:48 Discharge instructions given to patient, Instructed on discharge instructions, follow up and referral plans. medication usage, Demonstrated understanding of instructions, follow-up care, medications, Prescriptions given X 1, 21:49 Patient left the ED. lg3 Addendum: 03/01/2024 08:09 Addendum: Culture Results: Positive urine culture. No further action required. Bacteria e b sensitive to prescribed antibiotic. Signatures: Dispatcher [employer] EDOK Armen Solorzano Jahala RN RN jl7 Loan Giang Lacie, RN RN lg3 Sammi Vigil, PA-C PA-C sb4 Derick Montgomery
[2024-02-25 21:57] VITALS: O2SAT 100
[2024-02-25 21:59] VITALS: BP 124/77; TEMP 97.6
== END 2024-02-25 21:49 | disposition home or self-care (01) ==
LOC: ER 17:22
DX: N39.0 Urinary tract infection, site not specified (principal); F41.9 Anxiety disorder, unspecified; I51.9 Heart disease, unspecified; Z95.9 Presence of cardiac and vascular implant and graft, unspecified
CPT/HCPCS: 96365; 87040 ×2; 87088; 85025; 81001; 87086; 36415; 81025; 85610; 83605; 85730; 87077; 87186; 80053; 74177; 96375; 99284; Q9967; J2405; J7030; J0696

== ENCOUNTER 2025-01-08 11:23 | Observation (INO) | payer OTHER ==
--- NOTE | 2025-01-08 12:07 | RAD REPORT ---
EXAMINATION: ONE VIEW CHEST XR CLINICAL INDICATION: CHEST PAIN TECHNIQUE: Frontal chest projection is submitted. Examination is limited by patient positioning and t echnique. COMPARISON: 02/12/2022 FINDINGS: The lungs are well inflated and clear. The heart is upper limit of normal in size. No displaced fract ures identified. IMPRESSION: No acute intrathoracic abnormalities.
[2025-01-08 12:12] LABS: Absolute Lymphocytes (CBC) 2.0 K/uL (0.7-4.9); Hematocrit 34.3 % (36.0-45.0); Hemoglobin 12.0 g/dL (12.0-15.0); MCH 28.6 pg (27.0-35.0); MCHC 34.9 g/dL (32.0-36.0); MCV 81.8 fL (80-100); MPV 7.5 fL (7.6-11.3); Nucleated RBC Absolute Count 0.0 (0-0); Nucleated Red Blood Cells % 0.0 % (0-0); RBC Red Blood Cell Count 4.19 M/uL (3.86-4.86); White Blood Count 6.30 thou/uL (4.3-10.9)
[2025-01-08 12:15] LABS: PT Prothrombin Time 11.6 SECONDS (10-13.0); Protime INR 1.03
[2025-01-08 12:28] LABS: ALT/SGPT 21.0 U/L (13-56); AST/SGOT 11.0 U/L (15-37); Albumin 3.7 g/dL (3.4-5.0); Albumin/Globulin Ratio 1.1 (1.1-1.8); Alkaline Phosphatase 79.0 U/L (45-117); Anion Gap 10.6 mEq/L (5.0-15.0); BUN Blood Urea Nitrogen 10.0 mg/dL (7-18); Globulin 3.5 g/dL (2.3-3.5); Glucose Level 85.0 mg/dL (74-106); Potassium 3.6 mEq/L (3.5-5.1); Troponin High Sensitivity 3.8 pg/mL (<58.9)
--- NOTE | 2025-01-08 12:30 | RAD REPORT ---
EXAM: CT brain without contrast HISTORY: SYNCOPE COMPARISON: None TECHNIQUE: Multiple contiguous axial images were obtained and a CT of the brain without contrast. Sag ittal and coronal reformats were performed. One or more of the following dose reduction techniques were used: Automated exposure control, adjust ment of the mA and/or kV according to patient size, and/or iterative reconstruction. FINDINGS: No evidence of hydrocephalus, intracranial hemorrhage, or extra-axial fluid collection. The brain is normal in morphology. No evidence of midline shift or areas of brain edema. The calvarium is intact. The visualized paranasal sinuses and mastoid air cells are essentially clear . IMPRESSION: No evidence of acute intracranial abnormality.
[2025-01-08] MEDS ORDERED: ONDANSETRON 4 MG/2 ML VIAL ONE (13:14)
[2025-01-08] MEDS ORDERED: FENTANYL CITR 100 MCG/2 ML ONE (13:15)
[2025-01-08] MEDS ORDERED: NA CHLORIDE 0.9% 1,000 ML ONE (13:15)
--- NOTE | 2025-01-08 13:52 | RAD REPORT ---
EXAMINATION: CTA CHEST PE CLINICAL INDICATION: Female, 29 years old. CHEST PAIN TECHNIQUE: This examination was performed according to an angiographic protocol with 3D post-processi ng. This involves 3D reconstructions, MIPs, volume rendered images and/or shaded surface rendering. One or more of the following dose reduction techniques were used: Automated exposure control, adjustm ent of the mA and/or kV according to patient size, and/or iterative reconstruction. Unless otherwise specified, incidental findings do not require dedicated imaging follow-up. [id number]. COMPARISON: Same day chest radiograph. FINDINGS: LOWER NECK: Visualized thyroid gland and soft tissues are normal. MEDIASTINUM AND LYMPH NODES: No mediastinal mass or fluid collection. Normal size mediastinal, hilar, and axillary lymph nodes. THORACIC AORTA: No thoracic aortic aneurysm. PULMONARY ARTERIES: Caliber is within normal limits. No pulmonary emboli identified. HEART: Normal heart size. No coronary calcifications.No significant pericardial effusion. LUNGS AND AIRWAYS: No evidence of airspace or interstitial process. No suspicious and/or stable pulmo nary nodules. PLEURA: No pleural effusions. No pneumothorax. OSSEOUS STRUCTURES AND CHEST WALL: No fracture or suspicious osseous lesions. UPPER ABDOMEN: No acute abnormalities. IMPRESSION: Negative for pulmonary embolism. No other acute process identified in the chest.
--- NOTE | 2025-01-08 13:57 | ER ---
Nurse's Notes [facility] Name: Luisa Cee Age: 29 yrs Sex: Female : 1995 Arrival Date: 01/08/2025 Time: 11:23 Bed 13 Private MD: Diagnosis: Chest pain, unspecified Presentation: 01/08 11:28 Chief complaint: Patient states: C/O chest pressure, being unable to catch her breath ar8 x1 week. patient also stated that yesterday she was experiencing a left facial droop and syncope. 11:28 Coronavirus screen: At this time, the client does not indicate any symptoms associated ar8 with coronavirus-19. Ebola Screen: No symptoms or risks identified at this time. Initial Sepsis Screen: Does the patient meet any 2 criteria? No. Patient's initial sepsis screen is negative. Does the patient have a suspected source of infection? No. Patient's initial sepsis screen is negative. Risk Assessment: Do you want to hurt yourself or someone else? Patient reports no desire to harm self or others. Onset of symptoms was January 01, 2025. 11:28 Method Of Arrival: EMS: [facility] ar8 11:28 Acuity: LOPEZ 3 ar8 Triage Assessment: 11:28 General: Appears uncomfortable, Behavior is calm, cooperative. Pain: Complains of pain ar8 in chest. 11:28 Neuro: Level of Consciousness is awake, alert, obeys commands, Oriented to person, ar8 place, time, situation, Medical Records Field Technician are equal bilaterally Moves all extremities. Full function Gait is steady, Speech is normal, Facial symmetry appears normal. Cardiovascular: Reports chest pain, Rhythm is sinus rhythm. Respiratory: Airway is patent Respiratory effort is even, unlabored, Respiratory pattern is regular, symmetrical. GI: No signs and/or symptoms were reported involving the gastrointestinal system. : No signs and/or symptoms were reported regarding the genitourinary system. Derm: No signs and/or symptoms reported regarding the dermatologic system. Musculoskeletal: No signs and/or symptoms reported regarding the musculoskeletal system. 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 - Infectious Disease History:: Denies. - Social history:: Smoking status: Patient denies any tobacco usage or history of. Screenin:35 [facility] ED Fall Risk Assessment (Adult) History of falling in the last 3 months, ar8 including since admission No falls in past 3 months (0 pts) Confusion or Disorientation No (0 pts) Intoxicated or Sedated No (0 pts) Impaired Gait No (0 pts) Mobility Assist Device Used No (0 pt) Altered Elimination No (0 pt) Score/Fall Risk Level 0 - 2 = Low Risk Oriented to surroundings, Maintained a safe environment. Abuse screen: Denies threats or abuse. Nutritional screening: No deficits noted. Tuberculosis screening: No symptoms or risk factors identified. Assessment: 12:01 Reassessment: See triage assessment. ar8 15:00 Reassessment: Patient and/or family updated on plan of care and expected duration. Pain ar8 level reassessed. Patient is alert, oriented x 3, equal unlabored respirations, skin warm/dry/pink. Patient states feeling better. Patient states symptoms have improved. 18:23 Reassessment: Patient and/or family updated on plan of care and expected duration. Pain ar8 level reassessed. Patient is alert, oriented x 3, equal unlabored respirations, skin warm/dry/pink. Vital Signs: 11:28 BP 113 / 82; Pulse 74; Resp 18; Pulse Ox 100% on 4 lpm NC; Weight 69.85 kg; Height 5 ar8 ft. 4 in. ; Pain 8/10; 12:00 BP 111 / 81; Pulse 74; Resp 18; Pulse Ox 100% on R/A; ar8 13:00 BP 109 / 72; Pulse 72; Resp 18; Pulse Ox 100% on R/A; ar8 13:57 BP 111 / 73; Pulse 65; Resp 19; Pulse Ox 100% on R/A; Pain 6/10; ar8 14:20 Pain 0/10; ar8 14:45 BP 106 / 77; Pulse 68; Resp 20; Pulse Ox 100% on R/A; Pain 0/10; ar8 15:45 BP 114 / 71; Pulse 71; Resp 21; Pulse Ox 100% on R/A; Pain 0/10; ar8 16:30 BP 107 / 70; Pulse 69; Resp 20; Pulse Ox 100% on R/A; ar8 17:15 BP 97 / 59; Pulse 72; Resp 16; Pulse Ox 98% on R/A; ar8 18:15 BP 99 / 68; Pulse 71; Resp 15; Pulse Ox 98% ; ar8 11:28 Body Mass Index 26.43 (69.85 kg, 162.56 cm) ar8 11:28 Pain Scale: Adult ar8 13:57 Pain Scale: Adult ar8 14:20 Pain Scale: Adult ar8 14:45 Pain Scale: Adult ar8 15:45 Pain Scale: Adult ar8 ED Course: 11:27 Patient arrived in ED. ar8 11:28 Arm band placed on right wrist. ar8 11:35 Pk Khan RN is Primary Nurse. ar8 11:35 Bed in low position. Call light in reach. Side rails up X2. Provided Education on: plan ar8 of care, diagnostics and estimated wait time. Client placed on continuous cardiac and pulse oximetry monitoring. NIBP monitoring applied. 11:35 No provider procedures requiring assistance completed. Maintain EMS IV. Dressing ar8 intact. Good blood return noted. Site clean \T\ dry. Gauge \T\ site: 20G L FA. Flushed with 10 mL NS. 11:36 Aiden Summers FNP-C is PHCP. dr5 11:36 Vicky Hines MD is Attending Physician. dr5 11:38 Triage completed. ar8 11:55 EKG done, by ED staff. ar8 11:56 XRAY Chest (1 view) In Process Unspecified. EDMS 11:58 Initial lab(s) drawn, by me, sent to lab. ar8 12:01 CBC with Diff Sent. ar8 12:01 PT-INR Sent. ar8 12:01 Troponin HS Sent. ar8 12:01 CMP Sent. ar8 12:21 CT Head Brain wo Cont In Process Unspecified. EDMS 13:[address] via stretcher. ar8 13:35 CT Chest For PE Angio In Process Unspecified. EDMS 13:56 Kinsey Shi MD is Hospitalizing Provider. dr5 Administered Medications: 13:25 Drug: Ondansetron IVP 4 mg IVP once; over 2 minutes Route: IVP; Site: left forearm; ar8 14:00 Follow up: Response: No adverse reaction ar8 13:25 Drug: NS 0.9% IV 1000 ml IV at 1000 ml once; to be given as a bolus over 60 minutes ar8 Route: IV; Rate: 1000 ml; Site: left forearm; 14:40 Follow up: Response: No adverse reaction; IV Status: Completed infusion; IV Intake: ar8 1000ml 13:27 Drug: fentaNYL (PF) IVP 25 mcg IVP once Route: IVP; Site: left forearm; ar8 14:20 Follow up: Pain 0/10 Adult; Response: No adverse reaction; Pain is decreased ar8 Medication: 12:00 VIS not applicable for this client. ar8 Intake: 14:40 IV: 1000ml; Total: 1000ml. ar8 Outcome: 13:57 Decision to Hospitalize by Provider. dr5 20:06 Patient left the ED. vk Signatures: Dispatcher [employer] EDGabriela Alberts Dustin, MACHINE SETTER-C MACHINE SETTER-Cdr5 Pk Khan, RN RN ar8
--- NOTE | 2025-01-08 13:57 | EDPHYS ---
Physician Documentation [facility] Name: Luisa Cee Age: 29 yrs Sex: Female : 1995 Arrival Date: 01/08/2025 Time: 11:23 Bed 13 Private MD: ED Physician Vicky Hines HPI: 01/08 11:51 This 29 yrs old Female presents to ER via EMS with complaints of chest pain. dr5 11:51 Patient is a 29-year-old female with history of anxiety and heart disease coming in dr5 with 1 week of intermittent chest pain, shortness of breath. Patient reports she describes her chest pain as pressure someone is sitting on her. Patient reports cardiac ablations x 4. Patient states she last saw Dr. Bach at the beginning of the year. Patient currently taking ASA, propanolol.. 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 - Infectious Disease History:: Denies. - Social history:: Smoking status: Patient denies any tobacco usage or history of. ROS: 11:51 Constitutional: as per hpi dr5 Exam: 11:51 Constitutional: This is a well developed, well nourished patient who is awake, alert, dr5 and in no acute distress. Head/Face: Normocephalic, atraumatic. Eyes: Pupils equal round and reactive to light, extra-ocular motions intact. Lids and lashes normal. Conjunctiva and sclera are non-icteric and not injected. Cornea within normal limits. Periorbital areas with no swelling, redness, or edema. Neck: Trachea midline, no thyromegaly or masses palpated, and no cervical lymphadenopathy. Supple, full range of motion without nuchal rigidity, or vertebral point tenderness. No Meningismus. Chest/axilla: Normal chest wall appearance and motion. Nontender with no deformity. No lesions are appreciated. Cardiovascular: Regular rate and rhythm with a normal S1 and S2. Normal PMI, no JVD. No pulse deficits. Respiratory: Lungs have equal breath sounds bilaterally, clear to auscultation. No rales, rhonchi or wheezes noted. No increased work of breathing, no retractions or nasal flaring. Back: No spinal tenderness. No costovertebral tenderness. Full range of motion. Skin: Warm, dry with normal turgor. Normal color with no rashes, no lesions, and no evidence of cellulitis. MS/ Extremity: Pulses equal, no cyanosis. Neurovascular intact. Full, normal range of motion. Neuro: Awake and alert, GCS 15, oriented to person, place, time, and situation. Cranial nerves II-XII grossly intact. Motor strength 5/5 in all extremities. Sensory grossly intact. Cerebellar exam normal. Normal gait. Vital Signs: 11:28 BP 113 / 82; Pulse 74; Resp 18; Pulse Ox 100% on 4 lpm NC; Weight 69.85 kg; Height 5 ar8 ft. 4 in. ; Pain 8/10; 12:00 BP 111 / 81; Pulse 74; Resp 18; Pulse Ox 100% on R/A; ar8 13:00 BP 109 / 72; Pulse 72; Resp 18; Pulse Ox 100% on R/A; ar8 13:57 BP 111 / 73; Pulse 65; Resp 19; Pulse Ox 100% on R/A; Pain 6/10; ar8 14:20 Pain 0/10; ar8 14:45 BP 106 / 77; Pulse 68; Resp 20; Pulse Ox 100% on R/A; Pain 0/10; ar8 15:45 BP 114 / 71; Pulse 71; Resp 21; Pulse Ox 100% on R/A; Pain 0/10; ar8 16:30 BP 107 / 70; Pulse 69; Resp 20; Pulse Ox 100% on R/A; ar8 17:15 BP 97 / 59; Pulse 72; Resp 16; Pulse Ox 98% on R/A; ar8 18:15 BP 99 / 68; Pulse 71; Resp 15; Pulse Ox 98% ; ar8 11:28 Body Mass Index 26.43 (69.85 kg, 162.56 cm) ar8 11:28 Pain Scale: Adult ar8 13:57 Pain Scale: Adult ar8 14:20 Pain Scale: Adult ar8 14:45 Pain Scale: Adult ar8 15:45 Pain Scale: Adult ar8 MDM: 11:36 Medical Screening Exam initiated dr5 13:54 Differential Diagnosis NSTEMI, STEMI, PE, intracranial hemorrhage or abnormality, dr5 anemia, syncope. Data reviewed: vital signs, nurses notes, lab test result(s), CBC, white blood cell count, hemoglobin, hematocrit, platelets, electrolytes, sodium, potassium, chloride, serum bicarbonate, BUN, creatinine, serum glucose, EKG, radiologic studies, CT scan, plain films. Consideration of Admission/Observation Patient was admitted/placed on observation. Management of patient was discussed with the following: Hospitalist: Dr. Shi. I considered the following discharge prescriptions or medication management in the emergency department I discussed and recommended Over The Counter medications, Medications were administered in the Emergency Department. See MAR. Historians other than the Patient: Heart Disease, Anxiety. Care significantly affected by the following chronic conditions: Heart Disease, Anxiety. Care significantly affected by the following Social Determinants of Health: Poor access to healthcare and/or lack of insurance, Poor access to transportation, Problems related to employment. Scoring Tools HEART Score: History: ECG: Age: Risk Factors: 1 or 2 risk factors (1), Troponin: Total Score = 2. Counseling: I had a detailed discussion with the patient and/or guardian regarding the historical points, exam findings, and any diagnostic results supporting the discharge/admit diagnosis, the presence of at least one elevated blood pressure reading (>120/80) during this emergency department visit, lab results, radiology results, the need for further work-up and treatment in the hospital. Medication response: Fentanyl, Zofran. Response to treatment: the patient's symptoms have mildly improved after treatment. ED course: Will admit patient to Dr. Shi for chest pain and shortness of breath. Negative CT PE and negative head CT. Patient is agreeable to plan.. 01/08 11:43 Order name: CBC with Diff; Complete Time: 12: dr5 01/08 11:43 Order name: PT-INR; Complete Time: 12: dr5 01/08 11:43 Order name: Troponin HS; Complete Time: 12: dr5 01/08 11:43 Order name: CMP; Complete Time: 12: dr5 01/08 14:16 Order name: Troponin High Sensitivity EDCA 01/08 14:16 Order name: Troponin High Sensitivity EDMS 01/08 14:16 Order name: Troponin High Sensitivity EDMS 01/08 14:50 Order name: Basic Metabolic Panel EDMS 01/08 14:50 Order name: Basic Metabolic Panel EDMS 01/08 14:50 Order name: CBC with Automated Diff EDMS 01/08 14:50 Order name: CBC with Automated Diff EDMS 01/08 14:50 Order name: Lipid Profile EDMS 01/08 14:50 Order name: Lipid Profile EDMS 01/08 14:50 Order name: PTT, Activated Partial Thromb EDMS 01/08 14:50 Order name: PTT, Activated Partial Thromb EDMS 01/08 11:43 Order name: XRAY Chest (1 view); Complete Time: 12:08 01/08 11:50 Order name: CT Head Brain wo Cont; Complete Time: 12:32 dr5 01/08 12:57 Order name: CT Chest For PE Angio; Complete Time: 13:53 dr5 01/08 14:50 Order name: Echo with Doppler EDCA 01/08 19:39 Order name: US; Complete Time: 19:44 EDCA 01/08 14:46 Order name: EKG Electrocardiogram EDCA 01/08 14:46 Order name: EKG Electrocardiogram EDCA 01/08 14:46 Order name: EKG Electrocardiogram EDCA 01/08 14:50 Order name: CONS Physician Consult EDCA 01/08 11:43 Order name: Cardiac monitoring; Complete Time: 11:45 01/08 11:43 Order name: EKG - Nurse/Tech; Complete Time: 12:01 01/08 11:43 Order name: IV Saline Lock; Complete Time: 11:45 01/08 11:43 Order name: Labs collected and sent; Complete Time: 12:01 01/08 11:43 Order name: O2 Per Protocol; Complete Time: 11:45 01/08 11:43 Order name: O2 Sat Monitoring; Complete Time: 11:46 dr5 EC:26 Rate is 73 beats/min. Rhythm is regular. QRS [place] is Normal. [place] interval is normal at dr5 116 msec. QRS interval is normal at 97 msec. QT interval is normal at 367 msec. Clinical impression: Normal ECG and No evidence of ischemia. Administered Medications: 13:25 Drug: Ondansetron IVP 4 mg IVP once; over 2 minutes Route: IVP; Site: left forearm; ar8 14:00 Follow up: Response: No adverse reaction ar8 13:25 Drug: NS 0.9% IV 1000 ml IV at 1000 ml once; to be given as a bolus over 60 minutes ar8 Route: IV; Rate: 1000 ml; Site: left forearm; 14:40 Follow up: Response: No adverse reaction; IV Status: Completed infusion; IV Intake: ar8 1000ml 13:27 Drug: fentaNYL (PF) IVP 25 mcg IVP once Route: IVP; Site: left forearm; ar8 14:20 Follow up: Pain 0/10 Adult; Response: No adverse reaction; Pain is decreased ar8 Disposition Summary: 01/08/25 13:57 Hospitalization Ordered Notes: Hospitalization Status: Inpatient Admission dr5 Provider: Kinsey Shi Location: Telemetry/MedSurg (Inpatient) dr5 Condition: Stable dr5 Problem: new dr5 Symptoms: have worsened dr5 Bed/Room Type: Standard dr5 Room Assignment: [facility](01/08/25 16:30) sp Diagnosis - Chest pain, unspecified dr5 Forms: - Medication Reconciliation Form dr5 - SBAR form dr5 - Leadership Thank You Letter dr5 Signatures: Dispatcher [employer] EDMS Queenie Peters Dustin, [employer] OPERATOR-Cdr5 Pk Khan RN RN ar8 Corrections: (The following items were deleted from the chart) 16:30 13:57 dr5 sp
--- NOTE | 2025-01-08 14:57 | P.HP ---
Certification for Inpatient Patient admitted to: Observation With expected LOS: <2 Midnights Patient will require the following post-hospital care: None Practitioner: I am a practitioner with admitting privileges, knowledge of patient current condition, hospital course, and medical plan of care. Services: Services provided to patient in accordance with Admission requirements found in Title 42 Section 412.3 of the Code of Federal Regulations <Thanh Fairbanks - Last Filed: 01/08/25 14:50> Patient History Date of Service: 01/08/25 Primary Care Provider: Cande Avilez NP Reason for admission: Chest pain, syncope History of Present Illness: Luisa Cee is a 29-year-old female with a history of anxiety, heart disease, and prior cardiac ablation who presented to the emergency department via EMS following a syncopal episode. Patient reports experiencing chest pressure and feeling unable to catch her breath for approximately 1 week prior to presentation. Yesterday, she developed new symptoms including left facial droop and experienced a syncopal episode, which prompted her to seek emergency medical care. Patient describes the chest discomfort as pressure-like in nature. She is currently taking propranolol and baby aspirin for her cardiac condition. The patient has a significant cardiac history including previous cardiac catheterization performed on December 18, 2021, and prior cardiac ablation procedure. Laboratory Studies: Complete blood count was unremarkable. PT/INR was normal. Comprehensive metabolic panel was unremarkable. Troponin level was elevated at 3.8 (will trend). Imaging Studies: Chest X-ray showed no acute intrathoracic abnormalities. CT head without contrast showed no evidence of acute intracranial abnormalities. CT chest angiogram was negative for pulmonary embolism and showed no other acute process identified in the chest. Electrocardiogram was completed bpm 73, MD interval 116, borderline ST abnormalities in leads II and III. - Past Medical/Surgical History Has patient received pneumonia vaccine in the past: No Diabetic: No -: Asthma -: Anemia -: Depression -: 2017 -: Breast reduction 2014 -: Darrow tooth removal -: Scar revision 2016 - Social History Smoking Status: Never smoker Alcohol use: Yes CD- Drugs: No Caffeine use: Yes Place of Residence: Home <Thanh Fairbanks - Last Filed: 01/08/25 14:50> Date of Service: 01/08/25 <Kinsey Shi - Last Filed: 01/08/25 16:53> Allergies benzoyl peroxide Allergy (Verified 01/17/22 10:40) Itching/Burning/Inflammation Home Medications: Lions Tim 2 cap PO DAILY 11/16/21 Propranolol [Inderal] 10 mg PO BID 01/17/22 Review of Systems 10-point ROS is otherwise unremarkable <Thanh Fairbanks - Last Filed: 01/08/25 14:50> Physical Examination - Physical Exam General: Alert, Oriented x3, Cooperative, Obese HEENT: Atraumatic, Normocephalic, Mucous membr. moist/pink, Other (Corrective lenses) Neck: Supple, Without JVD or thyroid abnormality Respiratory: Clear to auscultation bilaterally, Normal air movement Cardiovascular: No edema, Regular rate/rhythm, Normal S1 S2 Capillary refill: <2 Seconds Gastrointestinal: Normal bowel sounds, Soft and benign, Non-distended Musculoskeletal: No clubbing, No swelling, No contractures, No erythema Integumentary: No rashes, No breakdown, No tenderness/swelling Neurological: Normal speech, Normal tone, Sensation intact, Cranial nerves 3-12 intact, Normal affect - Studies Laboratory Data (last 24 hrs) 01/08/25 01/08/25 01/08/25 11:58 11:58 11:58 WBC 6.30 Hgb 12.0 Hct 34.3 L Plt Count 305 PT 11.6 INR 1.03 Sodium 140 Potassium 3.6 BUN 10 Creatinine 0.55 Glucose 85 Total Bilirubin 0.3 AST 11 L ALT 21 Alkaline Phosphatase 79 <Thanh Fairbanks - Last Filed: 01/08/25 14:50> - Studies Laboratory Data (last 24 hrs) 01/08/25 01/08/25 01/08/25 11:58 11:58 11:58 WBC 6.30 Hgb 12.0 Hct 34.3 L Plt Count 305 PT 11.6 INR 1.03 Sodium 140 Potassium 3.6 BUN 10 Creatinine 0.55 Glucose 85 Total Bilirubin 0.3 AST 11 L ALT 21 Alkaline Phosphatase 79 <Kinsey Shi - Last Filed: 01/08/25 16:53> Assessment and Plan - Plan 29-year-old female with a history of anxiety, heart disease, and prior cardiac ablation who presented to the emergency department via EMS following a syncopal episode. Plan: Chest Pain ACS rule out - EGC personally reviewed, no acute ischemic changes. -Troponin mildly elevated at 3.8, will trend - Heart Score = 3 - ASA 81, home med - Enox 1mg/kg - Suplemental O2 titrate SpO2>94% PRN - BB -propranolol 10 mg daily once med rec complete - Maintain Hgb > 10 -Cardiology consulted, known to Dr. Bach Syncopal episode: -Hemodynamically stable at this time. -EKG personally reviewed, no acute ischemic changes. -Troponin mildly elevated at 3.8, will trend -Continue telemetry at this time. -Echo ordered, will follow Discharge Plan: Home Plan to discharge in: 24 Hours - Advance Directives Does patient have a Living Will: No Does patient have a Durable POA for Healthcare: No - Code Status/Comfort Care Code Status Assessed: Yes (Full code) Critical Care: No <Thanh Fairbanks - Last Filed: 01/08/25 14:50> Physician Review: Patient Assessed, Agree with Above Assessment and Plan <Kinsey Shi - Last Filed: 01/08/25 16:53>
--- NOTE | 2025-01-08 19:38 | RAD REPORT ---
EXAMINATION: US CAROTID DUPLEX CLINICAL INDICATION: , 29 years old. Syncopal episode. TECHNIQUE: Real-time grayscale, color flow and spectral Doppler sonographic images were obtained of t extracranial carotid system using a linear transducer. [id number]. COMPARISON: No prior exam. FINDINGS: RIGHT: Common carotid artery: 93 cm/s Internal carotid artery: 102 cm/s External carotid artery: 74 cm/s Right ICA/CCA ratio: 1.1 Plaque None Vertebral artery Antegrade LEFT: Common carotid artery: 101 cm/s Internal carotid artery: 77 cm/s External carotid artery: 89 cm/s lEFT ICA/CCA ratio: 0.8 Plaque None Vertebral artery Antegrade IMPRESSION: No hemodynamically significant stenosis (greater than 50%) within the extracranial [facility].
[2025-01-08] MEDS: ENOXAPARIN 80 MG/0.8 ML SQ SCH (20:46)
[2025-01-08 22:30] LABS: METHAMPHETAM NEGATIVE (NEGATIVE); THC Cannibis NEGATIVE (NEGATIVE)
[2025-01-08 22:42] LABS: HDL Cholesterol 41.0 mg/dL (40-60); LDL Cholesterol, Calculated 34.0 mg/dL (<130); LDL Cholesterol,Calc NonReport 34.0
[2025-01-09 03:33] VITALS: O2SAT 98
[2025-01-09 07:01] LABS: Absolute Lymphocytes (CBC) 1.7 K/uL (0.7-4.9); Hematocrit 33.1 % (36.0-45.0); Hemoglobin 11.5 g/dL (12.0-15.0); MCH 28.8 pg (27.0-35.0); MCHC 34.8 g/dL (32.0-36.0); MCV 82.6 fL (80-100); MPV 7.5 fL (7.6-11.3); Nucleated RBC Absolute Count 0.0 (0-0); Nucleated Red Blood Cells % 0.0 % (0-0); RBC Red Blood Cell Count 4.01 M/uL (3.86-4.86); White Blood Count 5.40 thou/uL (4.3-10.9)
[2025-01-09 07:13] LABS: Anion Gap 7.8 mEq/L (5.0-15.0); BUN Blood Urea Nitrogen 8.0 mg/dL (7-18); Glucose Level 100.0 mg/dL (74-106); Potassium 3.8 mEq/L (3.5-5.1)
[2025-01-09] MEDS: ASPIRIN EC 81 MG TAB PO SCH (09:08)
[2025-01-09 16:24] VITALS: BP 108/57; TEMP 98.2
--- NOTE | 2025-01-09 16:36 | P.DS ---
Admission Date: 01/08/25 Discharge Date: 01/09/25 Primary Care Provider: Cande Avilez NP Disposition: ROUTINE DISCHARGE Discharge Condition: GOOD Reason for Admission: Chest pain, syncope Brief History of Present Illness: Luisa Cee is a 29-year-old female with a history of anxiety, heart disease, and prior cardiac ablation who presented to the emergency department via EMS following a syncopal episode. Patient reports experiencing chest pressure and feeling unable to catch her breath for approximately 1 week prior to presentation. Yesterday, she developed new symptoms including left facial droop and experienced a syncopal episode, which prompted her to seek emergency medical care. Patient describes the chest discomfort as pressure-like in nature. She is currently taking propranolol and baby aspirin for her cardiac condition. The patient has a significant cardiac history including previous cardiac catheterization performed on December 18, 2021, and prior cardiac ablation procedure. Laboratory Studies: Complete blood count was unremarkable. PT/INR was normal. Comprehensive metabolic panel was unremarkable. Troponin level was elevated at 3.8 (will trend). Imaging Studies: Chest X-ray showed no acute intrathoracic abnormalities. CT head without contrast showed no evidence of acute intracranial abnormalities. CT chest angiogram was negative for pulmonary embolism and showed no other acute process identified in the chest. Electrocardiogram was completed bpm 73, NM interval 116, borderline ST abnormalities in leads II and III. Hospital Course: Physical Examination - Physical Exam General: Alert, Oriented x3, Cooperative, Obese HEENT: Atraumatic, Normocephalic, Mucous membr. moist/pink, Other (Corrective lenses) Neck: Supple, Without JVD or thyroid abnormality Respiratory: Clear to auscultation bilaterally, Normal air movement Cardiovascular: No edema, Regular rate/rhythm, Normal S1 S2 Capillary refill: <2 Seconds Gastrointestinal: Normal bowel sounds, Soft and benign, Non-distended Musculoskeletal: No clubbing, No swelling, No contractures, No erythema Integumentary: No rashes, No breakdown, No tenderness/swelling Neurological: Normal speech, Normal tone, Sensation intact, Cranial nerves 3-12 intact, Normal affect - Studies Laboratory Data (last 24 hrs) 01/08/25 01/08/25 01/08/25 11:58 11:58 11:58 WBC 6.30 Hgb 12.0 Hct 34.3 L Plt Count 305 PT 11.6 INR 1.03 Sodium 140 Potassium 3.6 BUN 10 Creatinine 0.55 Glucose 85 Total Bilirubin 0.3 AST 11 L ALT 21 Alkaline Phosphatase 79 - Studies Laboratory Data (last 24 hrs) 01/08/25 01/08/25 01/08/25 11:58 11:58 11:58 WBC 6.30 Hgb 12.0 Hct 34.3 L Plt Count 305 PT 11.6 INR 1.03 Sodium 140 Potassium 3.6 BUN 10 Creatinine 0.55 Glucose 85 Total Bilirubin 0.3 AST 11 L ALT 21 Alkaline Phosphatase 79 Assessment and Plan - Plan 29-year-old female with a history of anxiety, heart disease, and prior cardiac ablation who presented to the emergency department via EMS following a syncopal episode. 01/09/2025 - Seen by cardiology. Follow-up with cardiology as outpatient - Continue propranolol - We discussed avoiding vaping and/or smoking of any kind - Labs reviewed - CT angiography negative, carotid artery ultrasound within normal limits, head CT negative, chest x-ray negative Chest Pain ACS rule out - EGC personally reviewed, no acute ischemic changes. -Troponin mildly elevated at 3.8, will trend - Heart Score = 3 - ASA 81, home med - Enox 1mg/kg - Suplemental O2 titrate SpO2>94% PRN - BB -propranolol 10 mg daily once med rec complete - Maintain Hgb > 10 -Cardiology consulted, known to Dr. Bach Syncopal episode: -Hemodynamically stable at this time. -EKG personally reviewed, no acute ischemic changes. -Troponin mildly elevated at 3.8, will trend -Continue telemetry at this time. -Echo ordered, will follow Discharge Plan: Home Plan to discharge in: 24 Hours - Advance Directives Does patient have a Living Will: No Does patient have a Durable POA for Healthcare: No - Code Status/Comfort Care Code Status Assessed: Yes (Full code) Critical Care: No Vital Signs/Physical Exam: Temp Pulse Resp BP Pulse Ox 98.2 F 89 18 108/57 L 98 01/09/25 16:00 01/09/25 16:00 01/09/25 16:00 01/09/25 16:00 01/09/25 16:00 Laboratory Data at Discharge: WBC 5.40 thou/uL (4.3-10.9) 01/09/25 06:47 Hgb 11.5 g/dL (12.0-15.0) L 01/09/25 06:47 Hct 33.1 % (36.0-45.0) L 01/09/25 06:47 Plt Count 253 thou/uL (152-406) 01/09/25 06:47 PT 11.6 SECONDS (10-13.0) 01/08/25 11:58 INR 1.03 01/08/25 11:58 APTT 37.0 SECONDS (27.2-37.4) 01/09/25 06:47 Sodium 141 mEq/L (136-145) 01/09/25 06:47 Potassium 3.8 mEq/L (3.5-5.1) 01/09/25 06:47 BUN 8 mg/dL (7-18) 01/09/25 06:47 Creatinine 0.54 mg/dL (0.55-1.02) L 01/09/25 06:47 Glucose 100 mg/dL (74-106) 01/09/25 06:47 Total Bilirubin 0.3 mg/dL (0.2-1.0) 01/08/25 11:58 AST 11 U/L (15-37) L 01/08/25 11:58 ALT 21 U/L (13-56) 01/08/25 11:58 Alkaline Phosphatase 79 U/L (45-117) 01/08/25 11:58 Triglycerides 120 mg/dL (<150) 01/08/25 21:50 Cholesterol 99 mg/dL (<200) 01/08/25 21:50 HDL Cholesterol 41 mg/dL (40-60) 01/08/25 21:50 Cholesterol/HDL Ratio 2.41 01/08/25 21:50 Home Medications: Propranolol [Inderal*] 10 mg PO BID 01/17/22 Magnesium [Magnesium Gluconate] 200 mg PO PRN PRN 01/08/25 Followup: Livier Kang MD [Primary Care Provider] - Justo Bach MD [ACTIVE - CAN ADMIT] -
--- NOTE | 2025-01-09 20:37 | CON ---
Date of Consultation: 01/09/2025 Reason For Consultation: Chest pain. History Of Present Illness: This is a 29-year-old female, very well known to me. She has mild coron alfredo artery disease involving the ramus. She presented to the emergency room with a syncopal episode and started having chest pain. She apparently has been going through a lot of stress at work and edwina ng very anxious and she started having chest pressure and significant heaviness over the chest that s he could not breathe. She became very short of breath, started about a week to presentation and prog ressively became worse and at one time she felt left facial droop and then she lost consciousness. S he presented to the emergency room. At the present time, she has no chest pain. Past Medical History: Coronary artery disease, mild asthma. Medications: Refer to reconciliation sheet for detailed list. Allergies: . Family History: No premature coronary artery disease or cancer. Social History: She does not smoke or drink. Does not use any drugs. Review of Systems: All systems reviewed and they are negative except as mentioned in the HPI. Physical Examination: Vital Signs: Reviewed. Head and Neck: Pupils are equal, reactive to light. Intact eye movements. No JVD. No cervical lym phadenopathy. Neck is supple. Thyroid is not enlarged. Lungs: Clear to auscultation bilaterally. No rhonchi, wheezing, or crackles. No accessory muscle u se. Heart: Regular rate and rhythm. No extra sounds. Abdomen: Soft, nontender. Bowel sounds positive. No organomegaly. No masses or hernia. No rigidi ty or rebound. Extremities: No edema, clubbing, or cyanosis. Intact pulses. Skin: No rash. No nodules. Neurologic: Alert, awake, oriented x3. No acute focal deficits appreciated. Investigations: BUN 8, creatinine 0.54. Troponins x3 are negative and hemoglobin is 11.5. CT of th e chest negative and carotid artery ultrasound negative. Assessment And Recommendations: 1. Chest pain, noncardiac likely. It sounds like a panic attack, as she has multiple complaints incl uding neurological plus cardiac. At this point, I do not believe this is cardiac in nature. No furt her workup is needed here. She can be released and to follow up with me in the office as an outpatie nt. We will plan to obtain a cardiac stress test as an outpatient for further assurance. 2. Syncope. Again, I believe it is a panic attack. However, I asked her to record blood pressure re adings post discharge and to bring it to my office and we will plan to put a Holter monitor and obtai n an echo on her. 3. Coronary artery disease, mild chest pain. I will do an outpatient stress test. /LEWIS Voice ID: [id number] Report ID: [id number]
== END 2025-01-09 17:28 | disposition home or self-care (01) ==
LOC: ER 11:23 → ERHOLD 14:48 → 2ND 17:57
PROVIDERS: ADMIT Family Medicine; ATTEND Family Medicine
DX: R55 Syncope and collapse (principal); R07.9 Chest pain, unspecified; F41.9 Anxiety disorder, unspecified; I25.10 Atherosclerotic heart disease of native coronary artery without angina pectoris; Z71.6 Tobacco abuse counseling
CPT/HCPCS: 93306; 85025 ×2; 80048; 36415 ×2; 81025; 85610; 80061; 85730; 84484 ×3; 80053; 80307; 70450; 71275; 71045; 93880; Q9967; J1650 ×2; J3010; J2405; J7030; 93005; 96361; 96374; 96375; 99285; G0378